=== PATIENT | male | born 1950 | race African-American/Black ===

== ENCOUNTER 2019-08-13 14:44 | Emergency (ER) | payer MEDICARE, SELFPAY ==
[2019-08-13] VITALS (11 sets, daily range): BP systolic 102–130; BP diastolic 76–90; PULSE 87–109; RESP 20–35; TEMP 36.8–38.6; O2SAT 89–100
--- NOTE | ~2019-08-13 | XR_ITS ---
XR chest 1V portable 08/13/2019 15:16 Indication: Hypoxia. Pneumonia. Procedure: AP portable chest Comparison: No prior studies for comparison. Findings: There is cardiomegaly. Extensive bilateral airspace disease. Possible small left effusion. No pneumothorax. No acute osseous abnormality. Impression: 1: Extensive bilateral airspace disease may represent edema or pneumonia. Reviewed, dictated and finalized at location A. Impression: 1: Extensive bilateral airspace disease may represent edema or pneumonia.
--- NOTE | ~2019-08-13 | CT_ITS ---
EXAMINATION: CTA chest PE abdomen pel DATE: 08/13/2019 16:30 INDICATION: Hypoxia TECHNIQUE: Computed tomography (CT) pulmonary angiogram of the chest was performed with 100 mL Omnipa que-350 intravenous contrast. Additional 3D reconstructions utilizing coronal maximum intensity proje ction (MIP) were performed. CT of the abdomen and pelvis was performed with intravenous contrast util izing the same contrast bolus following a short delay. Automated exposure control and iterative recon struction technique were employed. The dose-length product was 2412.94 mGy-cm. COMPARISON: None FINDINGS: Chest: Good contrast opacification of the pulmonary arteries. There is moderate streak artifact from dense c ontrast in the superior vena cava and right atrium as well as cardiac monitoring leads. Moderate scat tered respiratory motion artifact. Overall this decreases sensitivity and specificity in the segmenta l and subsegmental pulmonary arteries. There is decreased enhancement in the segmental and subsegment al pulmonary arteries of the posterior basilar segment of the right lower lobe suspicious for pulmona ry embolism. No other defects with significant suspicion for pulmonary embolism. Elevation of the rig ht hemidiaphragm. There are bilateral patchy groundglass opacities throughout both lungs with depende nt and lower lung predominance. Scattered bands of discoid atelectasis. Small bilateral pleural effus ions. Heart size is normal. No pericardial effusion. Incidentally noted left-sided upper partial anom alous pulmonary venous return which drains to the left brachiocephalic vein. Thoracic aorta is normal in caliber with no dissection. Bilateral hilar lymphadenopathy. There are prominent bronchial arteri es at the mediastinum and altaf. Small sliding-type hiatal hernia. Wall thickening in the distal esoph benji along with left few additional prominent paraesophageal lymph nodes in the inferior mediastinum. Abdomen/pelvis: Suggestion of subtle liver surface nodularity suspicious for cirrhosis. Gallbladder, spleen, pancreas , bilateral adrenal glands and right kidney are normal. Small region of cortical scarring at the lowe r pole of the left kidney. Bladder is normal. Prostatomegaly. Postoperative change of prior partial c olectomy with anastomotic suture line at the sigmoid colon. No abnormal bowel wall thickening or obst ruction. Fluid in the distal colon consistent with diarrhea. Normal appendix. No free intraperitoneal gas or fluid. No pathologically enlarged abdominal or pelvic lymphadenopathy. Mild fat-containing le ft inguinal hernia. Chronic mild L1 compression fracture. Moderate lumbar spondylosis. IMPRESSION: 1. Suggestion of a pulmonary arterial filling defect in the posterior basilar segment of the right lo wer lobe suspicious for pulmonary embolism. Sensitivity and specificity moderately limited by combina tion of motion artifact, streak artifact and good but suboptimal contrast opacification. 2. Patchy bilateral consolidation and groundglass opacities concerning for pneumonia. Differential in cludes pulmonary infarcts although airspace disease is more extensive than the single suspected pulmo nary embolism and several of the region of airspace disease have an atypical or central location. 3. Prominent bronchial arteries which can be seen with bronchiectasis, pulmonary hypertension, chroni c pulmonary embolism or following prior repair for congenital cardiac anomalies. 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 4. Small sliding-type hiatal hernia with wall thickening in the distal esophagus which could be relat ed to reflux. When clinically appropriate would consider follow-up endoscopy for further evaluation. 5. Mild bilateral hilar and paraesophageal lymphadenopathy which could be reactive or metas
--- NOTE | 2019-08-13 14:46 | ECG_ITS ---
Measurements Intervals [place] Rate: 99 P: 43 ME: 150 QRS: -23 QRSD: 88 T: 37 QT: 342 QTc: 439 Interpretive Statements SINUS RHYTHM POSSIBLE LEFT ATRIAL ENLARGEMENT RSR' IN V1 OR V2, CONSIDER RIGHT VENTRICULAR HYPERTROPHY OR RIGHT VCD POSSIBLE LEFT VENTRICULAR HYPERTROPHY BORDERLINE T WAVE ABNORMALITY- INFERIOR LEADS BASELINE ARTIFACT- II, III BORDERLINE ECG Electronically Signed On 08-13-2019 15:32:17 CDT by Winston Leonard D.O.
--- NOTE | 2019-08-13 15:14 | ED.SOB ---
HPI - SOB/Dyspnea General Chief Complaint: Shortness of Breath/Dyspnea Stated Complaint: SOB, Cough, Fever Time Seen by Provider: 08/13/19 14:54 History of Present Illness HPI Narrative: The patient presents from shelter for shortness of breath and cough. His roommate is currently patient here with coded. He has been coughing up phlegm that has no color. He arrived with a fever of 101.5. He does not complain of shortness of breath despite an elevated respiratory rate. He complains of epigastric abdominal pain. He speaks few words and usually just nods his head to answer. He did know the year. MD elicited complaint: shortness of breath and cough Onset (ago): unknown Context: recent illness Timing: progressively worsening Severity: moderate Known history of: other (Schizophrenia) Associated symptoms: fever, cough, sputum production and abdominal pain Related Data Home oxygen amount: none Home Medications Medication Instructions Recorded Confirmed acetaminophen [Tylenol] 650 mg PO QID PRN 08/13/19 acidophilus-pectin, citrus 1 cap PO BID 08/13/19 [Acidophilus Probiotic] divalproex 125 mg PO 08/13/19 gabapentin 100 mg PO BID 08/13/19 loperamide 2 mg PO 6XD PRN 08/13/19 lorazepam 0.5 mg PO BID PRN 08/13/19 multivitamin with minerals 1 tablet PO DAILY 08/13/19 08/13/19 polysaccharide iron complex 150 mg PO BID 08/13/19 [Poly-Iron] potassium chloride 20 meq PO 08/13/19 pseudoephedrine-guaifenesin tablet PO 08/13/19 [Mucinex D] quetiapine 50 mg PO BID 08/13/19 quetiapine 200 mg PO HS 08/13/19 thiamine HCl (vitamin B1) 100 mg PO DAILY 08/13/19 Allergies Allergy/AdvReac Type Severity Reaction Status Date / Time Penicillins Allergy Intermediate Dyspnea / Verified 08/13/19 15:32 SOB Review of Systems Review of Systems: All systems reviewed & are unremarkable except as noted in HPI and below Cardiovascular: Cardiovascular: Denies chest pain Respiratory: Respiratory: Reports cough and Reports dyspnea Gastrointestinal: Gastrointestinal: Reports abdominal pain, Denies nausea and Denies vomiting PMFSH Family History Family History (Updated 03/16/18 @ 16:39 by DOCTOR UNKNOWN) Mother Diabetes mellitus Family history of malignant neoplasm of breast in first degree relative Father Malignant neoplasm of prostate Social History Social History Smoking status: Former smoker Smoking end date: 05/02/86 Alcohol intake: never Exam Const: General: no acute distress and alert Nutritional Appearance: well nourished Orientation/consciousness: patient oriented x3 Limitations: behavioral limitations Other: He gives short answers one-word or nods his head and following directions he is slow to respond HENMT: Head: normal to inspection Eyes: Pupils: Equal, round and reactive pupils present EOM: EOMs intact bilaterally Chest: Chest palpation & inspection: normal inspection of the chest Resp: Effort & Inspection: normal respiratory effort, no retractions and no use of accessory muscles Auscultation: no rales and no wheezes Cardio: Rate: regular rate Rhythm: regular rhythm GI: GI Palp: Yes Soft to palpation, No Tenderness to palpation present (GI), No Guarding due to palpation present (GI), No Rigid due to palpation and No Palpable mass present Skin: General skin exam: normal color Rashes: no rashes Neuro: General: patient oriented x3 and no focal motor deficits Speech: Abnormal speech present Extrem: General: normal to inspection Psych: Attitude: cooperative Thought content: Yes other Course Consultations Consultation #1: The , [place], requests that we send him to [facility]. I offered to call, but expect that he will stay here, with all the COVID precautions. Date: 08/13/19 Time: 17:24 Date: 08/13/19 Time: 18:03 Consultation #3: Called [facility] for possible transfer. Tracy will call me back.Tracy is the access nurse Date: 08/13/19 Time: 19:43 Additional Consultati
[2019-08-13] MEDS: SODIUM CHLORIDE 0.9% IV 500 ML 999 ML IV CONT (15:33)
[2019-08-13 15:40] LABS: Basophils Percent Auto 0.4 % (0.2-1.2); Hemoglobin 14.3 g/dL (14.0-18.0); Immature Granulocyte Absolute 0.03 K/mm3 (0.00-0.031); Immature Granulocyte Percent A 0.6 % (0-0.5); Lymphocytes Absolute Auto 1.08 K/mm3 (0.9-3.2); Lymphocytes Percent Auto 19.9 % (18.3-44.2); Mean Corpuscular Hemoglobin 32.7 pg (26-34); Mean Corpuscular Volume 96.1 fl (80-100); Mean Platelet Volume 12.2 fl (7.4-10.4); Monocytes Absolute Auto 0.4 K/mm3 (0.1-0.6); Monocytes Percent Auto 7.5 % (2.6-8.5); Neutrophils Absolute Auto 3.9 K/mm3 (1.3-6.7); Neutrophils Percent Auto 71.6 % (45.5-73.1); Platelet Count Result 133 k/mm3 (150-375); Red Blood Count 4.37 M/mm3 (4.6-6.20); Red Cell Distribution Width 11.9 % (11.5-14.5); White Blood Count 5.4 K/mm3 (4.5-10.0)
[2019-08-13 15:55] LABS: Lactic Acid 1.6 mmol/L (0.7-2.1); Lipase 1425 U/L (23-300)
[2019-08-13 16:31] LABS: Estimated CRCL calculation 74 ml/min; Estimated Glomerular Filt Rate > 60
[2019-08-13] MEDS: HEPARIN SODIUM 5,000 UNITS/ML VIAL 7500 UNITS IV PUSH (18:09)
[2019-08-13] MEDS: HEPARIN SOD/D5W 100 UNITS/ML 25,000 UNITS/250 ML BAG 15 UNITS IV CONT (18:16)
[2019-08-13 18:53] LABS: Basophils Percent Auto 0.5 % (0.2-1.2); Hematocrit 41.9 % (42.0-52.0); Hemoglobin 14.1 g/dL (14.0-18.0); Immature Granulocyte Absolute 0.03 K/mm3 (0.00-0.031); Immature Granulocyte Percent A 0.5 % (0-0.5); Immature Platelet Fraction Pct 11.7 % (0.9-11.2); Lymphocytes Absolute Auto 1.51 K/mm3 (0.9-3.2); Lymphocytes Percent Auto 24.3 % (18.3-44.2); Mean Corpuscular HGB Conc 33.7 g/dl (32-36); Mean Corpuscular Hemoglobin 32.5 pg (26-34); Mean Corpuscular Volume 96.5 fl (80-100); Monocytes Absolute Auto 0.4 K/mm3 (0.1-0.6); Monocytes Percent Auto 6.6 % (2.6-8.5); Neutrophils Absolute Auto 4.2 K/mm3 (1.3-6.7); Neutrophils Percent Auto 68.1 % (45.5-73.1); Platelet Count Result 134 k/mm3 (150-375); Red Blood Count 4.34 M/mm3 (4.6-6.20); Red Cell Distribution Width 11.9 % (11.5-14.5); White Blood Count 6.2 K/mm3 (4.5-10.0)
[2019-08-13 19:00] LABS: INR 1.3; Prothrombin Time 15.8 Seconds (11.1-14.7)
[2019-08-13 19:14] LABS: Blood Urea Nitrogen 18 mg/dL (9-20); Carbon Dioxide 30 mmol/L (22-30); Chloride 96 mmol/L (98-107); Estimated CRCL calculation 74 ml/min; Estimated Glomerular Filt Rate > 60; Glucose 121 mg/dL (75-110); Potassium 3.7 mmol/L (3.4-5.0); Sodium 132 mmol/L (137-145)
[2019-08-13 19:19] LABS: Partial Thromboplastin Time > 200.0 SECONDS (22.3-36.8)
--- NOTE | 2019-08-13 21:42 | PC.NURSE ---
[facility]
--- NOTE | 2019-08-13 21:57 | PC.NURSE ---
ETA for [facility] ambulance said to be 45minutes.
[2019-08-14 13:45] LABS: SARS-CoV-2 RNA PCR Positive
--- NOTE | 2019-08-21 11:48 | PC.NURSE ---
Late Entry Pt was transferred to [facility] with heparin dripp infusing at current charted rate of 15mls an hour This note is being entered to document information to the patient's record. The following information was omitted on [08/13/2019], by [KL].
== END 2019-08-13 23:20 | disposition short-term general hospital (02) ==
PROVIDERS: Emergency Medicine; Emergency Provider Emergency Medicine; PCP Family Medicine
DX: U07.1 COVID-19 (principal); J12.89 Other viral pneumonia; K85.90 Acute pancreatitis without necrosis or infection, unspecified; I26.99 Other pulmonary embolism without acute cor pulmonale; R50.9 Fever, unspecified; F20.9 Schizophrenia, unspecified; R09.02 Hypoxemia; R10.13 Epigastric pain; D69.6 Thrombocytopenia, unspecified; Z87.891 Personal history of nicotine dependence; R94.31 Abnormal electrocardiogram [ECG] [EKG]
CPT/HCPCS: 36415; 71045; 71275; 74177; 80048; 83605; 83690; 85025; 85055; 85610; 85730; 87040; 87635; 87804; 93005; 96361; 96365; 96366; 96367; 96368; 99285; C9803; J0456; J0696; J1644; J7040; Q9967; U0002

== ENCOUNTER 2020-07-11 19:09 | Emergency (ER) | payer MEDICARE, SELFPAY ==
[2020-07-11] VITALS (25 sets, daily range): BP systolic 105–129; BP diastolic 67–90; PULSE 72–89; RESP 13–24; O2SAT 93–100
--- NOTE | ~2020-07-11 | XR_ITS ---
XR chest 2V 07/11/2020 19:43 Indication: Weakness. Dyspnea. Procedure: AP and lateral views of the chest Comparison: 08/13/2019 Findings: There is patchy bilateral airspace disease predominantly of the mid and lower lungs, consis tent with pneumonia. Elevated right diaphragm. Heart size normal. No pneumothorax. No significant eff usion. Impression: 1: Patchy bilateral airspace disease, compatible with pneumonia. Reviewed, dictated and finalized at location A. ON P[place]CH[place] Impression: 1: Patchy bilateral airspace disease, compatible with pneumonia.
--- NOTE | 2020-07-11 19:19 | ECG_ITS ---
Measurements Intervals [place] Rate: 86 P: 42 [place]: 174 QRS: -27 QRSD: 100 T: 18 QT: 372 QTc: 447 Interpretive Statements SINUS RHYTHM VOLTAGE CRITERIA FOR LVH BASELINE ARTIFACT- V2 BORDERLINE ECG Electronically Signed On 07-11-2020 20:54:06 REMOTELY PILOTED [employer]HICLE [employer]OLLER by Winston Leonard D.O.
--- NOTE | 2020-07-11 19:35 | PC.NURSE ---
Patient to radiology
[2020-07-11 20:07] LABS: Basophils Percent Auto 0.9 % (0.2-1.2); Eosinophils Absolute Auto 0.3 K/mm3 (0-0.3); Eosinophils Percent Auto 7.7 % (0-4.4); Hemoglobin 14.3 g/dL (14.0-18.0); Immature Granulocyte Absolute 0.01 K/mm3 (0.00-0.031); Immature Granulocyte Percent A 0.2 % (0-0.5); Lymphocytes Absolute Auto 1.65 K/mm3 (0.9-3.2); Lymphocytes Percent Auto 37.3 % (18.3-44.2); Mean Corpuscular HGB Conc 33.3 g/dl (32-36); Mean Corpuscular Hemoglobin 35.7 pg (26-34); Mean Corpuscular Volume 107.2 fl (80-100); Mean Platelet Volume 10.1 fl (7.4-10.4); Monocytes Absolute Auto 0.7 K/mm3 (0.1-0.6); Monocytes Percent Auto 15.6 % (2.6-8.5); Neutrophils Absolute Auto 1.7 K/mm3 (1.3-6.7); Neutrophils Percent Auto 38.3 % (45.5-73.1); Platelet Count Result 137 k/mm3 (150-375); Red Blood Count 4.01 M/mm3 (4.6-6.20); Red Cell Distribution Width 15.5 % (11.5-14.5); White Blood Count 4.4 K/mm3 (4.5-10.0)
[2020-07-11] MEDS: LACTATED RINGERS 1,000 ML 999 ML IV CONT (20:13)
[2020-07-11 20:18] LABS: Ammonia < 9 umol/L (9-30)
[2020-07-11 20:20] LABS: Alanine Aminotransferase 15 U/L (4-50); Albumin Level 3.6 g/dL (3.5-5.1); Alkaline Phosphatase 100 U/L (38-126); Anion Gap 2 mmol/L (8-16); Aspartate Amino Transferase 31 U/L (17-59); Bilirubin,Total 1.6 mg/dL (0.2-1.3); Blood Urea Nitrogen 9 mg/dL (9-20); Calcium 8.9 mg/dL (8.4-10.2); Carbon Dioxide 34 mmol/L (22-30); Chloride 105 mmol/L (98-107); Estimated Glomerular Filt Rate > 60; Glucose 152 mg/dL (75-110); Potassium 3.6 mmol/L (3.4-5.0); Sodium 141 mmol/L (137-145)
[2020-07-11 20:50] LABS: Cortisol Random 2.24 ug/dL
--- NOTE | 2020-07-11 20:58 | ED.WEAKNESS ---
HPI - Weakness General Chief complaint: Weakness Stated complaint: weakness/altered mental status Time Seen by Provider: 07/11/20 19:25 Source: patient, EMS and other ([facility] records) Mode of arrival: EMS Limitations: dementia History of Present Illness HPI Narrative: 70-year-old male He is currently being treated at [place] for colon cancer, and his next primary is due in a couple of weeks He additionally has a history of dementia and schizophrenia According to the assisted paperwork he was sent to be evaluated for seems different than usual, talks and communicates less, tired, weak, confused or drowsy, falls, urinary incontinence new or worsening Patient himself is oriented x1-2, knows he is in a hospital He has no particular physical complaints Denies chest pain or trouble breathing vomiting or trouble with his bowels urinary trouble, pains anywhere bothering him, and his appetite is good if he can get food that he likes He mentions that he particularly likes meat loaf with mashed potatoes or barbecue He also would like to be able to work and make some money Related Data Home Medications Medication Instructions Recorded Confirmed acetaminophen [Tylenol] 650 mg PO QID PRN 08/13/19 acidophilus-pectin, citrus 1 cap PO BID 08/13/19 [Acidophilus Probiotic] divalproex 125 mg PO 08/13/19 gabapentin 100 mg PO BID 08/13/19 loperamide 2 mg PO 6XD PRN 08/13/19 lorazepam 0.5 mg PO BID PRN 08/13/19 multivitamin with minerals 1 tablet PO DAILY 08/13/19 08/13/19 polysaccharide iron complex 150 mg PO BID 08/13/19 [Poly-Iron] potassium chloride 20 meq PO 08/13/19 pseudoephedrine-guaifenesin tablet PO 08/13/19 [Mucinex D] quetiapine 50 mg PO BID 08/13/19 quetiapine 200 mg PO HS 08/13/19 thiamine HCl (vitamin B1) 100 mg PO DAILY 08/13/19 Allergies Allergy/AdvReac Type Severity Reaction Status Date / Time Penicillins Allergy Intermediate Dyspnea / Verified 08/13/19 15:32 SOB PMFSH Family History Family History (Updated 03/16/18 @ 16:39 by DOCTOR UNKNOWN) Mother Diabetes mellitus Family history of malignant neoplasm of breast in first degree relative Father Malignant neoplasm of prostate Social History Social History Smoking status: Former smoker Smoking end date: 05/02/86 Alcohol intake: never Course Course Emergency Course: He really looks pretty good and has minimal complaints There is a questionable infiltrate on his chest x-ray however his chest x-ray looks 100 times better than his prior chest x-ray here and that may in fact just be old scarring from the severe pneumonia that he had previously He does not have a fever he does not have a cough he does not have shortness of breath his sats are ~95% and his white count is unchanged from his baseline from [place] 2 weeks ago But out of abundance of caution we will treated with a brief course of Levaquin Vital Signs Vital signs: Vital Signs Pulse Rate 85 07/11/20 19:14 Respiratory Rate 14 07/11/20 19:14 Blood Pressure 129/81 07/11/20 19:14 Pulse Oximetry 95 07/11/20 19:14 Pulse Rate 89 07/11/20 20:32 Respiratory Rate 17 07/11/20 20:32 Blood Pressure 112/76 07/11/20 20:32 Pulse Oximetry 95 07/11/20 20:32 MDM - Weakness Lab Data Result diagrams: 07/11/20 20:01 07/11/20 20:01 Labs: Lab Results 07/11/20 07/11/20 07/11/20 Range/Units 20:01 20:01 20:01 WBC 4.4 L (4.5-10.0) K/mm3 RBC 4.01 L (4.6-6.20) M/mm3 Hgb 14.3 (14.0-18.0) g/dL Hct 43.0 (42.0-52.0) % MCV 107.2 H (80-100) fl MCH 35.7 H (26-34) pg MCHC 33.3 (32-36) g/dl RDW 15.5 H (11.5-14.5) % Plt Count 137 L (150-375) k/mm3 MPV 10.1 (7.4-10.4) fl Immature Gran % (Auto) 0.2 (0-0.5) % Neut % (Auto) 38.3 L (45.5-73.1) % Lymph % (Auto) 37.3 (18.3-44.2) % [place] % (Auto) 15.6 H (2.6-8.5) % Eos % (Auto) 7.7 H (0-4.4) % B
[2020-07-11 21:08] LABS: Add Urine Microscopic? YES; Appearance Urine Cloudy (Clear); Bilirubin Urine 1+ (Negative); Blood Urine Negative (Negative); Color Urine Amber (Yellow); Glucose Urine UA Negative (Negative); Ketones Urine Negative (Negative); Leukocyte Esterase Ur Negative LEU/UL (Negative); Mucus Urine Moderate /lpf; Nitrate Urine Negative (Negative); Protein Urine 1+ mg/dL (Negative); RBC Urine 0-2 /hpf (0-2); Specific Grav Ur 1.029 (1.001-1.035); WBC Urine 0-3 /hpf
--- NOTE | 2020-07-11 23:21 | PC.NURSE ---
called [facility] to arrange transport back to [facility] at 0045. ETA first available is 0300.
[2020-07-12 00:05] VITALS: PULSE 79; RESP 13
[2020-07-12 00:15] VITALS: PULSE 79; RESP 13
[2020-07-12 00:34] VITALS: PULSE 88; RESP 17
[2020-07-12 00:56] VITALS: PULSE 95; RESP 15
[2020-07-12 01:00] VITALS: PULSE 96; RESP 17
--- NOTE | 2020-07-12 01:12 | PC.NURSE ---
0036 called [facility] to request transport. [facility] here. Cancelled [facility].
== END 2020-07-12 01:13 ==
PROVIDERS: Emergency Provider Emergency Medicine; PCP Family Medicine
DX: J18.9 Pneumonia, unspecified organism (principal); F03.90 Unspecified dementia, unspecified severity, without behavioral disturbance, psychotic disturbance, mood disturbance, and anxiety; F20.9 Schizophrenia, unspecified; C18.9 Malignant neoplasm of colon, unspecified; Z87.891 Personal history of nicotine dependence; R94.31 Abnormal electrocardiogram [ECG] [EKG]
CPT/HCPCS: 36415; 51701; 71046; 80053; 81001; 82140; 82533; 83735; 84443; 85025; 87040; 87147; 87186; 93005; 96361; 96365; 99284; J1956; J7120

== ENCOUNTER 2020-08-22 09:00 | Outpatient (CLI) | payer MEDICARE, SELFPAY ==
--- NOTE | ~2020-08-22 | MR_ITS ---
EXAMINATION: MR brain/brain stem wo con DATE: 08/22/2020 10:16 INDICATION: Speech deficit. Cognitive issues. Frequent falls. TECHNIQUE: Magnetic resonance imaging (MRI) of the brain and brainstem was performed without intraven ous contrast. Sequences included sagittal and axial T1-weighted FSE, axial diffusion-weighted FS EPI, axial T2*-weighted GRE, axial T2-weighted FLAIR Propeller, and axial T2-weighted Propeller. Apparent diffusion coefficient (ADC) maps were created. COMPARISON: None. FINDINGS: There are scattered areas of nonspecific increased T2-weighted signal intensity in the cere bral white matter, which is within normal limits for the patient's age. There is no intracranial hemo rrhage, acute infarction, or abnormal intracranial mass lesion. The ventricles are normal in size. Th ere is mild mucosal thickening in the paranasal sinuses. The orbits are normal. The mastoid air cells are normal. IMPRESSION: 1. Normal aging brain. Reviewed, dictated and finalized at location B. IMPRESSION: 1. Normal aging brain.
== END 2020-08-22 09:01 ==
DX: R29.6 Repeated falls (principal)
CPT/HCPCS: 70551

== ENCOUNTER 2020-09-15 12:27 | Emergency (ER) | payer MEDICARE, SELFPAY ==
[2020-09-15] VITALS (15 sets, daily range): BP systolic 111–168; BP diastolic 77–109; PULSE 54–85; RESP 14–29; TEMP 36.6; O2SAT 94–99
--- NOTE | ~2020-09-15 | CT_ITS ---
EXAMINATION: CT brain wo con EXAM DATE: 09/15/2020 15:32 INDICATION: Transient change in awareness. Colon cancer. TECHNIQUE: Spiral CT of the head was performed without contrast. Axial, coronal and sagittal images were reviewed. The dose-length product (DLP) for this examination was 605.33 mGy-cm. The exposure w as tailored according to patient size, and iterative reconstruction (ASIR) was used as additional dos e reduction technique. There is no prior study for comparison. FINDINGS: There is no acute intraparenchymal hemorrhage. No evidence of intraparenchymal brain mass lesion. No evidence of acute infarction. Please note that initial head CT has limited sensitivity f or small or acute infarctions. There is mild periventricular and subcortical hypodensity, nonspecific but probably related to small vessel ischemic disease. There is moderate prominence of the sulci a nd ventricles related to cerebral atrophy. There is intracranial carotid arteriosclerosis. There a re no extra-axial collections. There is no mass effect or midline shift. The orbits are unremarkabl e. Soft tissue is unremarkable. The visualized sinuses and mastoid air cells are well aerated. IMPRESSION: 1. No acute intracranial findings. 2. Chronic age related findings. Reviewed, dictated and finalized at location A.
--- NOTE | 2020-09-15 12:56 | ECG_ITS ---
Measurements Intervals [place] Rate: 84 P: 34 ME: 170 QRS: -23 QRSD: 89 T: 26 QT: 381 QTc: 453 Interpretive Statements SINUS RHYTHM INCOMPLETE RIGHT BUNDLE BRANCH BLOCK VOLTAGE CRITERIA FOR LVH BORDERLINE T WAVE ABNORMALITY- INFERIOR LEADS BORDERLINE ECG Electronically Signed On 09-15-2020 13:18:47 CDT by Winston Leonard D.O.
[2020-09-15 13:17] LABS: Basophils Absolute Auto 0.1 K/mm3 (0.0-0.1); Basophils Percent Auto 0.8 % (0.2-1.2); Eosinophils Absolute Auto 0.2 K/mm3 (0-0.3); Eosinophils Percent Auto 3.7 % (0-4.4); Hematocrit 38.3 % (42.0-52.0); Hemoglobin 12.7 g/dL (14.0-18.0); Immature Granulocyte Absolute 0.01 K/mm3 (0.00-0.031); Immature Granulocyte Percent A 0.2 % (0-0.5); Lymphocytes Absolute Auto 1.54 K/mm3 (0.9-3.2); Lymphocytes Percent Auto 23.7 % (18.3-44.2); Mean Corpuscular HGB Conc 33.2 g/dl (32-36); Mean Corpuscular Hemoglobin 33.8 pg (26-34); Mean Corpuscular Volume 101.9 fl (80-100); Mean Platelet Volume 10.7 fl (7.4-10.4); Monocytes Absolute Auto 0.8 K/mm3 (0.1-0.6); Monocytes Percent Auto 12.8 % (2.6-8.5); Neutrophils Absolute Auto 3.8 K/mm3 (1.3-6.7); Neutrophils Percent Auto 58.8 % (45.5-73.1); Platelet Count Result 192 k/mm3 (150-375); Red Blood Count 3.76 M/mm3 (4.6-6.20); Red Cell Distribution Width 12.9 % (11.5-14.5); White Blood Count 6.5 K/mm3 (4.5-10.0)
--- NOTE | 2020-09-15 13:19 | ED.GENADULT ---
HPI - General Adult General Chief complaint: Unspecified Stated complaint: ?CHEMO OD Time Seen by Provider: 09/15/20 12:34 Source: RN notes reviewed History of Present Illness HPI narrative: Patient presents to emergency department from [facility] for medication administration error. The patient is currently on Stivarga for colon cancer and is followed by Dr. Kmi per the F the patient supposed be receiving 80 mg daily but for the past 3 days has been given 160 mg daily. On the area was noted today the patient was sent for further evaluation. Patient with history of dementia and is a poor historian denies any complaints at this time. Per the staff the patient has not developed some erythema over his left forehead and left side of his face patient states this area does not hurt no noted fevers or chills Related Data Home Medications Medication Instructions Recorded Confirmed acetaminophen [Tylenol] 650 mg PO QID PRN 08/13/19 acidophilus-pectin, citrus 1 cap PO BID 08/13/19 [Acidophilus Probiotic] divalproex 125 mg PO 08/13/19 gabapentin 100 mg PO BID 08/13/19 loperamide 2 mg PO 6XD PRN 08/13/19 lorazepam 0.5 mg PO BID PRN 08/13/19 multivitamin with minerals 1 tablet PO DAILY 08/13/19 08/13/19 polysaccharide iron complex 150 mg PO BID 08/13/19 [Poly-Iron] potassium chloride 20 meq PO 08/13/19 pseudoephedrine-guaifenesin tablet PO 08/13/19 [Mucinex D] quetiapine 50 mg PO BID 08/13/19 quetiapine 200 mg PO HS 08/13/19 thiamine HCl (vitamin B1) 100 mg PO DAILY 08/13/19 Allergies Allergy/AdvReac Type Severity Reaction Status Date / Time Penicillins Allergy Intermediate Dyspnea / Verified 08/13/19 15:32 SOB Review of Systems Review of Systems: Narrative: Gen.: Denies fevers or chills Eyes: Denies eye pain or visual change ENT: Denies congestion Respiratory: Denies shortness of breath or cough CV: Denies chest pain GI: Denies abdominal pain nausea, emesis or diarrhea Musculoskeletal: Denies back pain or muscle pain Neuro: Denies numbness, tingling, weakness or focal weakness Skin: See HPI Except as documented, all other systems reviewed and negative [facility] Past Medical History Medical History (Updated 09/15/20 @ 16:10 by Jose Ramires DO) Colon cancer Family History Family History (Updated 03/16/18 @ 16:39 by DOCTOR UNKNOWN) Mother Diabetes mellitus Family history of malignant neoplasm of breast in first degree relative Father Malignant neoplasm of prostate Social History Social History Smoking status: Former smoker Smoking end date: 05/02/86 Alcohol intake: never Exam Narrative: Exam Narrative: APPEARANCE: No acute distress, nontoxic, resting in bed EYES: EOMI, PERRL, no conjunctival erythema HEENT: Normocephalic, atraumatic, OMM TMs clear bilaterally nares patent oral mucosa moist Neck: Supple no midline tenderness palpation RESPIRATORY: No respiratory distress Clear to auscultation bilaterally with no rhonchi wheezing or rales. CARDIOVASCULAR: Regular rate and rhythm without murmurs rubs or gallops. ABDOMINAL: Soft, nontender, nondistende NEURO: Awake and alert x 2. Following commands, speech normal, no focal deficits SKIN:: Warm, dry. Erythematous rash over the left forehead to the left cheek and extends into the left superior eyelid with some mild yellow crusting no vesicles seen and it does seem to cross dermatomal lines no erythema of the neck seen does not extend into the ear and the external ear canal is normal PSYCHIATRIC: Normal affect/mood, Course Course Emergency Course: Poison control was contacted states that if liver enzymes normal patient may discharge to follow-up as an outpatient : Discussed with Dr. Kim presentation work-up agrees with plan for discharge will follow as an outpatient Discussed with patient results of workup and diagnosis. Discussed need for follow-up with primary care, p
[2020-09-15 13:27] LABS: Alanine Aminotransferase 10 U/L (4-50); Albumin Level 3.6 g/dL (3.5-5.1); Alkaline Phosphatase 162 U/L (38-126); Anion Gap 5 mmol/L (8-16); Aspartate Amino Transferase 28 U/L (17-59); Bilirubin,Total 0.9 mg/dL (0.2-1.3); Blood Urea Nitrogen 7 mg/dL (9-20); Calcium 8.8 mg/dL (8.4-10.2); Carbon Dioxide 27 mmol/L (22-30); Chloride 109 mmol/L (98-107); Estimated Glomerular Filt Rate > 60; Glucose 117 mg/dL (75-110); INR 1.4; Prothrombin Time 17.3 Seconds (11.1-14.7); Sodium 141 mmol/L (137-145)
[2020-09-15 13:28] LABS: Partial Thromboplastin Time 41.9 SECONDS (22.3-36.8)
--- NOTE | 2020-09-15 14:04 | PC.NURSE ---
[id number] SPOKE WITH [facility] @[facility]. STATES SUPPORTIVE CARE,MONITOR AST,ALT IF PT BEGINS HAVING NAUSEA,VOMITING . WILL FAX INFO.
--- NOTE | 2020-09-15 14:09 | PC.NURSE ---
~1330 SPOKE WITH [facility] PT WAS GIVEN REGORAFENIB (STIVARGA) 80 MG PO TWICE A DAY X 3 DAYS INSTEAD OF 80 MG PO DAILY FOR THE 3 DAYS. PT WAS JUST STARTED ON THIS MEDICATION ON TUESDAY.
[2020-09-15] MEDS: CLINDAMYCIN HCL 150 MG CAP 300 MG PO (16:37)
--- NOTE | 2020-09-15 16:47 | PC.NURSE ---
made contact with [facility] to transfer pt back to [facility] eta [phone]
--- NOTE | 2020-09-15 18:55 | PC.NURSE ---
made contact with [facility]. new eta [phone]
--- NOTE | 2020-09-15 19:45 | PC.NURSE ---
called [facility] for ETA update. ETA [phone]
== END 2020-09-15 20:35 ==
PROVIDERS: Emergency Provider Emergency Medicine
DX: L01.00 Impetigo, unspecified (principal); T45.1X1D Poisoning by antineoplastic and immunosuppressive drugs, accidental (unintentional), subsequent encounter; C22.9 Malignant neoplasm of liver, not specified as primary or secondary; Z87.891 Personal history of nicotine dependence; F03.90 Unspecified dementia, unspecified severity, without behavioral disturbance, psychotic disturbance, mood disturbance, and anxiety
CPT/HCPCS: 36415; 70450; 80053; 85025; 85610; 85730; 93005; 99284; A9270

== ENCOUNTER 2020-11-25 04:02 | Emergency (ER) | payer MEDICARE, MEDICAID, SELFPAY ==
--- NOTE | ~2020-11-25 | CT_ITS ---
EXAMINATION: CT brain wo con DATE: 11/25/2020 04:44 INDICATION: A status post fall. Patient on blood thinners. TECHNIQUE: Computed tomography (CT) of the head was performed without intravenous contrast. The dose- length product was 681.00 mGy-cm. Automated exposure control and iterative reconstruction technique w ere employed. COMPARISON: CT dated 09/15/2020 FINDINGS: No acute intracranial hemorrhage, infarction, mass or mass effect. Mild generalized atrophy . There are scattered mild periventricular and subcortical white matter changes, most likely related to small vessel ischemic disease (microangiopathy). No ventriculomegaly or midline shift. Paranasal s inuses and mastoids are pneumatized. No depressed skull fractures. IMPRESSION: 1. No acute intracranial abnormality. Reviewed, dictated and finalized at location A.
[2020-11-25 04:03] VITALS: BP 112/81; PULSE 92; RESP 14; TEMP 36.7; O2SAT 96
--- NOTE | 2020-11-25 04:13 | ED.FALL ---
HPI - Fall General Chief Complaint: Fall Stated Complaint: FALL Time Seen by Provider: 11/25/20 04:13 Source: patient and EMS Mode of arrival: EMS Limitations: no limitations History of Present Illness HPI Narrative: Patient is a 70-year-old male with history of colon cancer who presents from outside [place] for evaluation of fall out of bed. Patient reportedly fell out of bed altering in his sleep. Patient states it is a small bed, causing him to fall to the ground. He denies head trauma or loss of consciousness. He did not hit his head on the ground. Patient denies any neck pain or shoulder pain. No hip pain or pelvic pain. Patient denies any symptoms of any sort. Per policy at the halfway, anyone who is anticoagulated and has a fall must be evaluated for an intracranial bleed. Patient denies any vision changes, nausea or vomiting. He has been compliant with his medications. Related Data Home Medications Medication Instructions Recorded Confirmed acetaminophen [Tylenol] 650 mg PO QID PRN 08/13/19 acidophilus-pectin, citrus 1 cap PO BID 08/13/19 [Acidophilus Probiotic] divalproex 125 mg PO 08/13/19 gabapentin 100 mg PO BID 08/13/19 loperamide 2 mg PO 6XD PRN 08/13/19 lorazepam 0.5 mg PO BID PRN 08/13/19 multivitamin with minerals 1 tablet PO DAILY 08/13/19 08/13/19 polysaccharide iron complex 150 mg PO BID 08/13/19 [Poly-Iron] potassium chloride 20 meq PO 08/13/19 pseudoephedrine-guaifenesin tablet PO 08/13/19 [Mucinex D] quetiapine 50 mg PO BID 08/13/19 quetiapine 200 mg PO HS 08/13/19 thiamine HCl (vitamin B1) 100 mg PO DAILY 08/13/19 Allergies Allergy/AdvReac Type Severity Reaction Status Date / Time Penicillins Allergy Intermediate Dyspnea / Verified 11/25/20 04:47 SOB Review of Systems Review of Systems: Narrative: CONSTITUTIONAL: Denies fever CARDIOVASCULAR: Denies chest pain RESPIRATORY: Denies cough or dyspnea. GASTROINTESTINAL: Denies abdominal pain SKIN: Denies rash MUSCULOSKELETAL: Denies back pain NEUROLOGIC: Denies headache, denies numbness or weakness PMF Past Medical History Medical History Colon cancer Family History Family History Mother Diabetes mellitus Family history of malignant neoplasm of breast in first degree relative Father Malignant neoplasm of prostate Social History Social History Smoking status: Former smoker Smoking end date: 05/02/86 Alcohol intake: never Gender identity (if verbalized by the patient): Male Exam Narrative: Exam Narrative: GENERAL: Awake, alert, conversant HEAD: Normocephalic, atraumatic. EYES: PERRLA and EOMI. ENT: Nares clear, no rhinorrhea or epistaxis. Mucous membranes moist. NECK: Supple. CHEST: No respiratory distress, breathing even and non labored HEART: Regular rate, sinus rhythm ABDOMEN:Non distended, non tender EXTREMITIES: Normal range of motion. No edema. SKIN: Warm, dry, no rash. NEURO:No focal deficits. Alert and oriented x3 Course Vital Signs Vital signs: Vital Signs Temperature 36.7 C 11/25/20 04:03 Pulse Rate 92 11/25/20 04:03 Respiratory Rate 14 11/25/20 04:03 Blood Pressure 112/81 11/25/20 04:03 Pulse Oximetry 96 11/25/20 04:03 Temperature 36.7 C 11/25/20 04:03 Pulse Rate 87 11/25/20 05:20 Respiratory Rate 14 11/25/20 05:20 Blood Pressure 110/92 H 11/25/20 05:20 Pulse Oximetry 96 11/25/20 05:20 MDM - Fall MDM Narrative Medical decision making narrative: Patient presented after a fall out of bed. At the time of assessment, patient is alert and oriented to person, place and to time. No headache, vision changes or any neurological deficits. Based on halfway policy, patient is to have a CT scan of their head and to be evaluated for possible intracranial bleed given he is on a
[2020-11-25 05:20] VITALS: BP 110/92; PULSE 87; RESP 14; O2SAT 96
--- NOTE | 2020-11-25 06:12 | PC.NURSE ---
[facility] here.
== END 2020-11-25 06:16 ==
PROVIDERS: Emergency Provider Emergency Medicine
DX: Z04.3 Encounter for examination and observation following other accident (principal); Z85.038 Personal history of other malignant neoplasm of large intestine; Z87.891 Personal history of nicotine dependence; W06.XXXA Fall from bed, initial encounter; Z79.01 Long term (current) use of anticoagulants
CPT/HCPCS: 70450; 99284

== ENCOUNTER 2020-12-10 23:21 | Observation (INO) | payer MEDICARE, MEDICAID, SELFPAY ==
--- NOTE | ~2020-12-10 | CT_ITS ---
EXAMINATION: CT cervical spine wo con DATE: 12/11/2020 01:32 INDICATION: Fall. Dementia. TECHNIQUE: Computed tomography (CT) of the cervical spine was performed without intravenous contrast. Automated exposure control and iterative reconstruction technique were employed. Exam dose: 483.41 mGy-cm total exam DLP. COMPARISON: None FINDINGS: There is straightening of cervical spine which may be due to muscle spasm or positioning. C1 and C2 are normally aligned and the odontoid process is intact. No fracture or dislocation or lock ed facet or prevertebral soft tissue swelling. There is moderately severe degenerative disc disease at C3-4 and C4-5. Degenerative disc disease at C 5-6 and C6-7. Mild degenerative disc disease at C5-6. Emphysematous changes and scarring are suggested in the upper lung zones. IMPRESSION: Straightening of cervical spine, possibly due to muscle spasm Cervical spondylosis No cervical spine fracture or dislocation Reviewed, dictated and finalized at Location [facility]. Reviewed, dictated and finalized at location A.
--- NOTE | ~2020-12-10 | CT_ITS ---
EXAMINATION: CT brain wo con DATE: 12/11/2020 01:32 INDICATION: Fall. Patient on blood thinners. TECHNIQUE: Computed tomography (CT) of the head was performed without intravenous contrast. The mA wa s adjusted according to patient size. Iterative reconstruction technique was employed. Exam dose: 60 5.33 mGy-cm total exam DLP. COMPARISON: 11/25/2020 CT brain FINDINGS: Minimal bilateral basal ganglia calcification. Bilateral carotid siphon internal carotid artery calcifications. Nonspecific diminished attenuation c erebral white matter, likely due to chronic small vessel ischemic changes. No intracranial mass lesion or hemorrhage or cerebrovascular accident. No subdural or epidural hematoma. There is mild to moderate cerebral volume loss, most prominent in the frontal regions. Osteoma in the right frontoethmoid area. The paranasal sinuses and mastoid air cells appear normally developed and aerated. No fracture or bone destruction of the cranial vault. IMPRESSION: No skull fracture or acute intracranial finding Reviewed, dictated and finalized at [facility]. Reviewed, dictated and finalized at location A.
--- NOTE | ~2020-12-10 | XR_ITS ---
XR chest 1V portable DATE: 12/11/2020 00:46 INDICATION: Fever TECHNIQUE: Portable AP chest on 12/11/2020 at 0041 hours COMPARISON: 07/11/2020 AP and lateral chest FINDINGS: Heart size appears within normal range. There is moderate elevation of the right leaf of th e diaphragm, stable since 07/11/2020. There are extensive patchy bilateral pulmonary infiltrates consistent with multifocal pneumonia. No pleural effusion is evident. The radiographic appearance suggests Covid pneumonia. No pneumothorax. Diffuse osteopenia. Dextroscoliosis of the thoracolumbar spine. IMPRESSION: Patchy multifocal bilateral pneumonia without pleural effusions, suggestive of Covid pneu monia Reviewed, dictated and finalized at location A. IMPRESSION: Patchy multifocal bilateral pneumonia without pleural effusions, wilkerson ggestive of Covid pneumonia
[2020-12-10 23:21] VITALS: BP 117/85; PULSE 115; RESP 16; TEMP 37.3; O2SAT 95
[2020-12-11] VITALS (16 sets, daily range): BP systolic 91–124; BP diastolic 69–86; PULSE 79–111; RESP 16–27; TEMP 36.2–36.8; O2SAT 94–100; BMI 28.3
--- NOTE | 2020-12-11 00:32 | ED.GENADULT ---
HPI - General Adult General Chief complaint: Fall Stated complaint: fall Time Seen by Provider: 12/11/20 00:10 Source: patient, EMS and RN notes reviewed Mode of arrival: EMS Limitations: dementia History of Present Illness HPI narrative: This is 70 year old male with history of schizophrenia, DM who presents from [facility] for evaluation of fever and a fall. Nursing staff reports patient fell earlier in the day. It is unclear if he hit his head but he does take eliquis. Patient told nursing staff that he fell trying to get out of his wheelchair but he denies hitting his head. He has no complaints. Nursing staff also reports patient was found to have fever 101.1 F today and he was sent out due to declining vital signs. Related Data Home Medications Medication Instructions Recorded Confirmed gabapentin 100 mg PO BID 08/13/19 loperamide 2 mg PO 6XD PRN 08/13/19 multivitamin with minerals 1 tablet PO DAILY 08/13/19 08/13/19 polysaccharide iron complex 150 mg PO BID 08/13/19 [Poly-Iron] potassium chloride 20 meq PO 08/13/19 pseudoephedrine-guaifenesin tablet PO 08/13/19 [Mucinex D] quetiapine 50 mg PO BID 08/13/19 quetiapine 200 mg PO HS 08/13/19 thiamine HCl (vitamin B1) 100 mg PO DAILY 08/13/19 apixaban [Eliquis] mg 12/11/20 divalproex PO 12/11/20 lorazepam 12/11/20 mirtazapine mg 12/11/20 Allergies Allergy/AdvReac Type Severity Reaction Status Date / Time Penicillins Allergy Intermediate Dyspnea / Verified 12/10/20 23:32 SOB Review of Systems Review of Systems: All systems reviewed & are unremarkable except as noted in HPI and below PMFSH Past Medical History Medical History (Updated 12/11/20 @ 08:03 by Lulú Arias MD) Colon cancer Schizophrenia Family History Family History Mother Diabetes mellitus Family history of malignant neoplasm of breast in first degree relative Father Malignant neoplasm of prostate Social History Social History Smoking status: Former smoker Smoking end date: 01/01/87 Alcohol intake: never Gender identity (if verbalized by the patient): Male Exam Const: General: no acute distress and alert Orientation/consciousness: patient oriented x3 HENMT: Ears: TM's normal bilaterally Face and sinus: face symmetric and dry mucous membranes Mouth: Yes other (dried blood on lips, small scab on tip of tongue) Teeth and gingiva: poor dentition Throat: uvula midline Eyes: EOM: EOMs intact bilaterally Resp: Effort & Inspection: normal respiratory effort and no retractions Auscultation: clear to auscultation bilaterally Cardio: Rate: tachycardic Rhythm: regular rhythm Heart sounds: no murmurs GI: GI Palp: Yes Soft to palpation, No Tenderness to palpation present (GI) and No Guarding due to palpation present (GI) Auscultation: normal bowel sounds Skin: General skin exam: normal color Rashes: no rashes Neuro: General: patient oriented x3, moves all extremities and CN's II-XI intact bilaterally Extrem: General: normal to inspection Psych: Mental Status: mental status grossly normal Affect: normal affect Course Reevaluation(s) Reevaluation #1: Patient presents with fall and fever. He has no complaints. He appears extremely dehydrated. BP has been soft likely due to dehydration. I am concerned patient has pneumonia and possible covid. He has been started on antibiotics. I spoke with Dr. Thomas that patient needs admission due to BP running in low 90s. It is improving now after almost 3 L fluid. Date: 12/11/20 Time: 05:35 Vital Signs Vital signs: Vital Signs Temperature 99.1 F 12/10/20 23:21 Pulse Rate 115 H 12/10/20 23:21 Respiratory Rate 16 12/10/20 23:21 Blood Pressure 117/85 12/10/20 23:21 Pulse Oximetry 95 12/10/20 23:21 Temperature 99.1 F 12/10/20 23:21 Pulse Rate 82
[2020-12-11 01:23] LABS: Basophils Absolute Auto 0.1 K/mm3 (0.0-0.1); Hematocrit 42.1 % (42.0-52.0); Hemoglobin 13.2 g/dL (14.0-18.0); Immature Granulocyte Absolute 0.02 K/mm3 (0.00-0.031); Immature Granulocyte Percent A 0.4 % (0-0.5); Lymphocytes Absolute Auto 0.98 K/mm3 (0.9-3.2); Lymphocytes Percent Auto 19.1 % (18.3-44.2); Mean Corpuscular HGB Conc 31.4 g/dl (32-36); Mean Corpuscular Hemoglobin 28.9 pg (26-34); Mean Corpuscular Volume 92.1 fl (80-100); Mean Platelet Volume 10.6 fl (7.4-10.4); Monocytes Absolute Auto 1.1 K/mm3 (0.1-0.6); Monocytes Percent Auto 21.4 % (2.6-8.5); Neutrophils Percent Auto 58.1 % (45.5-73.1); Platelet Count Result 165 k/mm3 (150-375); Red Blood Count 4.57 M/mm3 (4.6-6.20); Red Cell Distribution Width 15.9 % (11.5-14.5); White Blood Count 5.1 K/mm3 (4.5-10.0)
[2020-12-11 01:32] LABS: INR 1.5; Prothrombin Time 18.1 Seconds (11.1-14.7)
[2020-12-11 01:33] LABS: Lactic Acid Reflex 1.3 mmol/L (0.7-2.1); Partial Thromboplastin Time 45.1 SECONDS (22.3-36.8)
[2020-12-11] MEDS: SODIUM CHLORIDE 0.9% IV 1,000 ML 999 ML IV CONT ×3 (01:33→05:10)
[2020-12-11 01:34] LABS: Alanine Aminotransferase 17 U/L (4-50); Albumin Level 3.6 g/dL (3.5-5.1); Alkaline Phosphatase 219 U/L (38-126); Anion Gap 8 mmol/L (8-16); Aspartate Amino Transferase 37 U/L (17-59); Bilirubin,Total 1.4 mg/dL (0.2-1.3); Blood Urea Nitrogen 11 mg/dL (9-20); Calcium 8.9 mg/dL (8.4-10.2); Carbon Dioxide 22 mmol/L (22-30); Chloride 107 mmol/L (98-107); Estimated Glomerular Filt Rate > 60; Glucose 95 mg/dL (65-110); Magnesium 1.7 mg/dL (1.6-2.3); Potassium 4.1 mmol/L (3.4-5.0); Sodium 137 mmol/L (137-145)
[2020-12-11 01:43] LABS: Alveolar/Arterial O2 Gradient 36.5 mmHg; Base Excess ABG 0.4 mEq/l (+/-2.0); Fractional Inspired Oxygen 21 %; HCO3 ABG 23.6 mEq/l (22.0-26.0); Methemoglobin ABG 0.3 %THb (0-1.5); Modified Allen's Test Pass; Oxygen Content ABG 18.2 %vol (16.0-22.0); Oxygen Saturation ABG 95.5 % (95.0-100.0); Oxyhemoglobin 92.8 % THb (90.0-100.0); PCO2 ABG 33.9 mmHg (35.0-45.0); PO2 ABG 72.6 mmHg (80.0-100.0); PO2 FiO2 Ratio Arterial Blood 3.46 %; Reduced Hemoglobin 5.9 %THb (0-5.0); Site Drawn RIGHT RADIAL; Total Hemoglobin 13.9 g/dL (12.0-18.0); pH ABG 7.461 (7.350-7.450)
[2020-12-11 04:00] LABS: Add Urine Microscopic? YES; Appearance Urine Clear (Clear); Bacteria Urine Trace /hpf; Bilirubin Urine 1+ (Negative); Blood Urine 2+ (Negative); Color Urine Amber (Yellow); Glucose Urine UA Negative (Negative); Ketones Urine 1+ mg/dL (Negative); Leukocyte Esterase Ur Negative LEU/UL (Negative); Mucus Urine Moderate /lpf; Nitrate Urine Negative (Negative); Protein Urine 1+ mg/dL (Negative); RBC Urine >75 /hpf (0-2); Specific Grav Ur 1.029 (1.001-1.035); Squamous Epithelial Cell Urine Rare /hpf (Few)
--- NOTE | 2020-12-11 07:37 | PC.NURSE ---
Dietary tray ordered for pt at this time, Pt is alert and upright on stretcher, VSS, belongings at bedside. Discussed POC. Pt placed on bed alarm.
--- NOTE | 2020-12-11 07:55 | ECG_ITS ---
Measurements Intervals [place] Rate: 84 P: 39 NV: 156 QRS: -31 QRSD: 89 T: 11 QT: 387 QTc: 460 Interpretive Statements SINUS RHYTHM LEFT AXIS DEVIATION DELAYED PRECORDIAL R/S TRANSITION LOW QRS VOLTAGE IN PRECORDIAL LEADS BORDERLINE T WAVE ABNORMALITY- ANTERIOR LEADS BASELINE ARTIFACT- I, II BORDERLINE ECG Electronically Signed On 12-11-2020 9:03:53 CDT by Winston Leonard D.O.
[2020-12-11 09:42] LABS: Troponin I < 0.012 ng/mL (0.000-0.034)
[2020-12-11 09:55] LABS: NT Pro B Type Natriuretic Pept 463 pg/mL (5-100)
[2020-12-11 10:03] LABS: Erythrocyte Sedimentation Rate 128 mm/hr (0-20)
--- NOTE | 2020-12-11 10:33 | ADMGEN ---
This patient, Shahram Cardozo, was admitted to IMU Room 214-01 on 12/11/20 at 0945. Patient/family oriented to hospital policies and general routines including ID bracelet, bed and alarms, visiting hours, pain management, procedures, bathroom and other care routines, personal items, smoking policy, room service/diet, and visiting hours. Information on how to activate the Rapid Response Team has been discussed. Patient/Family are encouraged to report perceived risks to care and to ask questions if they do not understand what they are told or what they should do.
[2020-12-11 10:58] LABS: CRP 7.1 mg/dL (<1.0); Creatine Kinase 177 U/L (55-170)
[2020-12-11] MEDS: SODIUM CHLORIDE 0.9% IV 1,000 ML 125 ML IV CONT (12:28)
[2020-12-11 12:47] LABS: Troponin I < 0.012 ng/mL (0.000-0.034)
--- NOTE | 2020-12-11 12:47 | PM.IMHP ---
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 In ED, patient was noted to fever of 101.5 and low blood pressures. Chest x-ray reveals concerns for bilateral pneumonia. COVID test has been sent and results are pending. He is also noted to have UA concerning for urine infection, which in the light of current condition will be treated as symptomatic. Patient is confused at baseline and has history of dementia, is not able to provide history. However, on interview, patient reports that he not been feeling well and is unsure why he was brought to the hospital. was attempted to be reached by phone by hospitalist however was unable to be contacted. He denies any nausea, vomiting, chest pain, chills, SOB or any other complains. His only complain is weakness and frequent urination. Chief Complaint: fever, fall Review of Systems Review of Systems: A 10 point review of systems was conducted which was otherwise negative. [facility] Past Medical History Medical History (Updated 12/11/20 @ 13:33 by Mamta Keyes MD) Colon cancer Schizophrenia Family History Family History Mother Diabetes mellitus Family history of malignant neoplasm of breast in first degree relative Father Malignant neoplasm of prostate Social History Social History Smoking packs per day: 3 Smoking cigarettes per day: 60.0 Smoking status: Former smoker Tobacco type: cigarettes Smoking end date: 05/02/86 Alcohol intake: never Substance use: never Gender identity (if verbalized by the patient): Male Spiritual care concerns: No Meds Home Medications and Allergies Home Medications Medication Instructions Recorded Confirmed Type gabapentin 100 mg PO DAILY 08/13/19 12/11/20 History loperamide 2 mg PO Q6H PRN 08/13/19 12/11/20 History polysaccharide iron complex 150 mg PO Q2D 08/13/19 12/11/20 History [Poly-Iron] quetiapine 200 mg PO TID 08/13/19 12/11/20 History Adults Multivitamin 1 tablet PO DAILY 12/11/20 12/11/20 History Milk of Magnesia 30 ml PO HS PRN 12/11/20 12/11/20 History apixaban [Eliquis] 5 mg PO BID 12/11/20 12/11/20 History bisacodyl 10 mg RECTAL DAILY PRN 12/11/20 12/11/20 History divalproex 250 mg PO TID 12/11/20 12/11/20 History ergocalciferol (vitamin D2) 50,000 unit PO Q7D 12/11/20 12/11/20 History [Vitamin D2] lorazepam 1 mg PO BID 12/11/20 12/11/20 History mirtazapine 15 mg PO HS 12/11/20 12/11/20 History ondansetron HCl 8 mg PO Q8H PRN 12/11/20 12/11/20 History sodium phosphates [Fleet Enema] 118 ml RECTAL DAILY PRN 12/11/20 12/11/20 History Allergies Allergy/AdvReac Type Severity Reaction Status Date / Time Penicillins Allergy Intermediate Dyspnea / Verified 12/10/20 23:32 SOB Vital Signs Vital Signs - 24 hr 12/10/20 23:21 12/11/20 01:48 12/11/20 03:08 Temperature 99.1 F Pulse Rate 115 H 100 93 Respiratory Rate 16 27 H 20 Blood Pressure 117/85 105/71 93/76 L Pulse Oximetry 95 99 95 12/11/20 03:47 12/11/20 05:41 12/11/20 07:24 Temperature Pulse Rate 89 82 82 Respiratory Rate 23 H 16 24 H Blood Pressure 91/69 L 100/72 100/74 Pulse Oximetry 99 95 97 12/11/20 08:45 12/11/20 09:08 12/11/20 09:45 Temperature 97.1 F L Pulse Rate 86 84 84 Respiratory Rate 19 16 16 Blood Pressure 95/73 L 108/73 Pulse Oximetry 97 96 100 Exam Const: General: cooperative, alert and awake HENMT: Head: normal to inspection Neck: Neck: normal visual inspection Chest: Chest palpation & inspection: normal inspection of the chest Resp: Effort &
[2020-12-11 14:50] LABS: CRP 7.2 mg/dL (<1.0)
[2020-12-11 14:51] LABS: D Dimer 1.29 ug/mL (<0.48)
[2020-12-11] MEDS: QUEtiapine FUMARATE 100 MG TABLET 200 MG PO (18:03)
[2020-12-11] MEDS: DIVALPROEX SODIUM DR 250 MG TABEC PO (18:04)
[2020-12-11] MEDS: APIXABAN 5 MG TABLET PO (18:04)
[2020-12-11 20:10] LABS: SARS-CoV-2 RNA PCR Negative
[2020-12-11] MEDS: FAMOTIDINE 10 MG TABLET PO (21:04)
[2020-12-11] MEDS: MIRTAZAPINE 15 MG TABLET PO (21:04)
--- NOTE | 2020-12-11 21:59 | ECG_ITS ---
Measurements Intervals [place] Rate: 104 P: 47 IA: 153 QRS: -38 QRSD: 88 T: 40 QT: 324 QTc: 428 Interpretive Statements SINUS TACHYCARDIA LEFT AXIS DEVIATION BASELINE ARTIFACT- II, III, AVF, V2 POOR R WAVE PROGRESSION, ANTERIOR LEADS BORDERLINE ECG Electronically Signed On 12-12-2020 5:53:50 CDT by Winston Leonard D.O.
[2020-12-12] VITALS (11 sets, daily range): BP systolic 103–111; BP diastolic 67–76; PULSE 98–121; RESP 16–188; TEMP 36.7–37.3; O2SAT 93–97
[2020-12-12 05:51] LABS: Hematocrit 38.6 % (42.0-52.0); Hemoglobin 12.5 g/dL (14.0-18.0); Mean Corpuscular HGB Conc 32.4 g/dl (32-36); Mean Corpuscular Hemoglobin 29.4 pg (26-34); Mean Corpuscular Volume 90.8 fl (80-100); Platelet Count Result 159 k/mm3 (150-375); Red Blood Count 4.25 M/mm3 (4.6-6.20); Red Cell Distribution Width 15.6 % (11.5-14.5); White Blood Count 5.7 K/mm3 (4.5-10.0)
[2020-12-12 06:03] LABS: Lactic Acid Reflex 1.4 mmol/L (0.7-2.1)
[2020-12-12 06:08] LABS: Alanine Aminotransferase 17 U/L (4-50); Alkaline Phosphatase 194 U/L (38-126); Anion Gap 8 mmol/L (8-16); Aspartate Amino Transferase 39 U/L (17-59); Bilirubin,Total 1.4 mg/dL (0.2-1.3); Blood Urea Nitrogen 8 mg/dL (9-20); CRP 8.5 mg/dL (<1.0); Calcium 8.3 mg/dL (8.4-10.2); Carbon Dioxide 21 mmol/L (22-30); Chloride 105 mmol/L (98-107); Creatine Kinase 175 U/L (55-170); Estimated CRCL calculation 71 ml/min; Estimated Glomerular Filt Rate > 60; Glucose 95 mg/dL (65-110); Lactate Dehydrogenase 591 U/L (313-618); Sodium 134 mmol/L (137-145)
[2020-12-12 07:04] LABS: Band Neutrophils Percent 7 % (0-6); Hypochromasia 1+ (NORMAL); Lymphocytes Absolute Manual 0.85 K/mm3 (1.1-4.5); Monocytes Absolute Manual 0.74 K/mm3 (0.1-0.90); Monocytes Percent Manual 13 % (3-9); Neutrophils Percent Manual 65 % (46-73); Platelet Estimate Adequate (Adequate); Total Cells Counted 100
--- NOTE | 2020-12-12 07:17 | PC.NURSE ---
patient had projectile coffee ground emesis around 430 this am. patient denied nausea, stomach pain. dr odonnell is aware and ordered a ppi to be given. repeat h&h. bowel movement is medium brown and soft. patient is on eliquis.
[2020-12-12] MEDS: QUEtiapine FUMARATE 100 MG TABLET 200 MG PO ×3 (09:04→17:08)
[2020-12-12] MEDS: DIVALPROEX SODIUM DR 250 MG TABEC PO ×3 (09:04→17:08)
[2020-12-12] MEDS: GABAPENTIN 100 MG CAPSULE PO (09:05)
[2020-12-12] MEDS: ZINC SULFATE 220 MG CAPSULE PO (09:05)
[2020-12-12] MEDS: ASCORBIC ACID 250 MG TABLET PO (09:05)
[2020-12-12] MEDS: APIXABAN 5 MG TABLET PO ×2 (09:06→17:08)
[2020-12-12] MEDS: POLYSACCHARIDE IRON COMPLEX 150 MG CAPSULE PO (09:06)
[2020-12-12] MEDS: FAMOTIDINE 10 MG TABLET PO (09:06)
[2020-12-12] MEDS: PANTOPRAZOLE SODIUM IV 40 MG VIAL IV PUSH (09:07)
[2020-12-12] MEDS: MULTIVITAMINS THERAPEUTIC TAB (*BKC) 1 TABLET PO (09:07)
[2020-12-12] MEDS: SODIUM CHLORIDE 0.9% IV 1,000 ML 125 ML IV CONT (12:54)
--- NOTE | 2020-12-12 14:16 | PM.DS ---
DS: Admitting Diagnosis Admitting Diagnosis Fever, falls DS: Discharge Diagnosis Discharge Diagnosis (1) Fall: Qualifiers: Encounter type: initial encounter Qualified Code(s): W19.XXXA - Unspecified fall, initial encounter Code(s): W19.XXXA - Unspecified fall, initial encounter Status: Acute (2) Hyperbilirubinemia: Code(s): E80.6 - Other disorders of bilirubin metabolism Status: Acute (3) UTI (urinary tract infection): Qualifiers: Urinary tract infection type: urethritis Qualified Code(s): N34.2 - Other urethritis Code(s): N39.0 - Urinary tract infection, site not specified Status: Acute (4) Person under investigation for COVID-19: Code(s): Z20.822 - Contact with and (suspected) exposure to COVID-19 Status: Acute (5) ISABELLE (acute kidney injury): Code(s): N17.9 - Acute kidney failure, unspecified Status: Acute (6) Pneumonia: Qualifiers: Laterality: bilateral Lung location: unspecified part of lung Pneumonia type: due to unspecified organism Qualified Code(s): J18.9 - Pneumonia, unspecified organism Code(s): J18.9 - Pneumonia, unspecified organism Status: Acute (7) Sepsis: Code(s): A41.9 - Sepsis, unspecified organism Status: Acute (8) Schizophrenia: Qualifiers: Schizophrenia type: unspecified Qualified Code(s): F20.9 - Schizophrenia, unspecified Code(s): F20.9 - Schizophrenia, unspecified Status: Acute (9) Colon cancer: Qualifiers: Colon location: unspecified part of colon Qualified Code(s): C18.9 - Malignant neoplasm of colon, unspecified Code(s): C18.9 - Malignant neoplasm of colon, unspecified Status: Acute DS: Summary Hospital Course Reason for hospitalization: fever, falls, sepsis, pneumonia Hospital Course: 70-year-old male with past medical history significant for schizophrenia, type 2 diabetes mellitus, stage IV colon cancer with liver Mets (follows up with Oncology, 10/31/2020, on Regorafenib), history PE and prior history of COVID pneumonia (08/2019), who is a resident of long term, presented with fever and falls. In ED, patient was noted to fever of 101.5 and low blood pressures. Chest x-ray reveals concerns for bilateral pneumonia. COVID test was sent which resulted negative. He he also received his 1st dose of Pfizer vaccine on 12/09. He is also noted to have UA concerning for urine infection, which in the light of current condition is being treated as symptomatic. He has noted today to improve. He is on room air. His lab work is concerning for 7% bands. However he has continued to receive IV antibiotics which were converted to p.o. Levaquin 500 daily (given his kidney condition). Patient will be discharged back to assisted today on p.o. Levaquin and dexamethasone 6 mg daily for 10 days. Status at Discharge Functional status at discharge: uses cane/walker Time Spent with Patient Time attestation: Total time spent providing and/or coordinating discharge services: Time spent: Greater than 30 minutes Exam Narrative: GENERAL: Awake, alert, conversant HEAD: Normocephalic, atraumatic. EYES: PERRLA and EOMI. ENT: Nares clear, no rhinorrhea or epistaxis. Mucous membranes moist. NECK: Supple. CHEST: No respiratory distress, breathing even and non labored HEART: Regular rate, sinus rhythm ABDOMEN:Non distended, non tender EXTREMITIES: Normal range of motion. No edema. SKIN: Warm, dry, no rash. NEURO:No focal deficits. Alert and oriented x3 DS: Data Data Completed and Pending Labs on day of discharge: Labs from last 24 hours 12/12/20 12/12/20 12/12/20 05:05 05:05 05:05 WBC RBC Hgb Hct MCV MCH MCHC RDW Plt Count MPV Immature Gran % (Auto) Neut % (Auto) Lymph % (Auto) [place] % (Auto) Eos % (Auto) Baso % (Auto) Lymph # (Auto) [place] # (Auto) Eos # (Auto) Ba
== END 2020-12-12 17:45 ==
LOC: ANHED 12-11 08:03 → ANHIMU 12-12 14:12
PROVIDERS: Admitting Provider Internal Medicine; Emergency Provider General Practice; PCP Family Medicine; Visit Provider Internal Medicine
DX: E80.6 Other disorders of bilirubin metabolism (principal); N39.0 Urinary tract infection, site not specified; J18.9 Pneumonia, unspecified organism; A41.9 Sepsis, unspecified organism; E87.3 Alkalosis; R09.02 Hypoxemia; N17.9 Acute kidney failure, unspecified; E86.0 Dehydration; Z20.822 Contact with and (suspected) exposure to COVID-19; C18.9 Malignant neoplasm of colon, unspecified; C78.7 Secondary malignant neoplasm of liver and intrahepatic bile duct; F20.9 Schizophrenia, unspecified; F03.90 Unspecified dementia, unspecified severity, without behavioral disturbance, psychotic disturbance, mood disturbance, and anxiety; E11.9 Type 2 diabetes mellitus without complications; W19.XXXA Unspecified fall, initial encounter; Z79.01 Long term (current) use of anticoagulants; Z87.891 Personal history of nicotine dependence
CPT/HCPCS: 36415; 36600; 51701; 70450; 71045; 72125; 80053; 81001; 82375; 82550; 82728; 82805; 83050; 83605; 83615; 83735; 83880; 84145; 84484; 85025; 85380; 85610; 85652; 85730; 86140; 87040; 87086; 93005; 96361; 96365; 96366; 96367; 96375; 99285; A9270; C9113; C9803; G0378; J0131; J1956; J7030; U0003; U0005

== ENCOUNTER 2020-12-28 17:56 | Observation (INO) | payer MEDICARE, MEDICAID, SELFPAY ==
[2020-12-28] VITALS (43 sets, daily range): BP systolic 81–114; BP diastolic 56–87; PULSE 96–116; RESP 17–34; TEMP 37.3; O2SAT 91–100
--- NOTE | ~2020-12-28 | XR_ITS ---
XR pelvis 1-2V DATE: 12/28/2020 19:32 INDICATION: Fall. Pelvic pain. TECHNIQUE: AP pelvis COMPARISON: None FINDINGS: No pelvic fracture or bone destruction is detected. The pubic symphysis and sacroiliac join ts are intact. No fracture or dislocation is evident at either hip. As a follow-up of fecal material in the rectosigmoid area. IMPRESSION: No pelvic fracture is detected Reviewed, dictated and finalized at location A.
--- NOTE | ~2020-12-28 | XR_ITS ---
XR chest 1V DATE: 12/28/2020 19:34 INDICATION: Fall. History of pulmonary embolus. Pneumonia. Former smoker. TECHNIQUE: AP chest COMPARISON: 12/11/2020 portable AP chest FINDINGS: Relatively stable patchy bilateral pulmonary infiltrates since 12/11/2020 suggesting bilater al multifocal pneumonia. Prominent elevation right diaphragm. Heart size appears normal. No pleural effusion or pneumothorax. IMPRESSION: Relatively stable patchy bilateral pulmonary infiltrates since 12/11/2020 Reviewed, dictated and finalized at location A.
--- NOTE | ~2020-12-28 | US_ITS ---
EXAMINATION: US renal BI EXAM DATE: 12/29/2020 09:38 INDICATION: Hematuria. TECHNIQUE: Multiple grayscale and Doppler images of the kidneys were obtained (by a technologist who performed the scan) and subsequently reviewed. There is no prior study for comparison. FINDINGS: Right kidney: There is normal contour and echogenicity. It measures 10.8 x 5.3 x 6.0 centimeters. T here are no focal renal lesions identified. There is no hydronephrosis. Left kidney: There is normal contour and echogenicity. It measures 9.9 x 4.4 x 6.0 centimeters. The re are no focal renal lesions identified. There is no hydronephrosis. Bladder unremarkable. IMPRESSION: 1. Sonographically unremarkable kidneys. Reviewed, dictated and finalized at location B.
--- NOTE | ~2020-12-28 | XR_ITS ---
EXAMINATION: XR abdomen/kub 1V DATE: 12/29/2020 16:28 INDICATION: Abdominal distention. TECHNIQUE: A supine view of the abdomen on 2 radiographs was obtained. COMPARISON: CT abdomen and pelvis 08/13/2019 FINDINGS: There are no dilated loops of bowel. There is a small volume of stool in the distal colon. IMPRESSION: 1. Nonobstructive bowel gas pattern. Reviewed, dictated and finalized at location A.
--- NOTE | ~2020-12-28 | XR_ITS ---
XR shoulder LT min 2V DATE: 12/28/2020 19:32 INDICATION: Fall today. Left shoulder injury, pain TECHNIQUE: 5 views COMPARISON: None FINDINGS: No fracture or dislocation of the left shoulder. No periosteal reaction or bone destruction . Mild osteoarthritis of the left glenohumeral joint. There is moderate osteopenia. IMPRESSION: Osteopenia Mild osteoarthritis at the left glenohumeral joint No fracture or dislocation Reviewed, dictated and finalized at location A.
--- NOTE | ~2020-12-28 | US_ITS ---
EXAMINATION: US abdomen limited EXAM DATE: 12/29/2020 09:41 INDICATION: Elevated liver enzyme TECHNIQUE: Multiple grayscale and Doppler images of the abdomen right upper quadrant were obtained (estee y a technologist who performed the scan) and subsequently reviewed. There is no prior study for sofía mayes. FINDINGS: The pancreatic head and body are normal in appearance. The pancreatic tail is not visualized. The l iver has normal echogenicity and contour. There are no focal liver lesions identified. There is no evidence of intrahepatic biliary duct dilation. Portal venous flow was seen in the hepatopedal, nor mal direction and has normal Doppler waveform. No right-sided hydronephrosis. Common bile duct measures 3 mm, which is normal. Gallbladder is not definitively identified. IMPRESSION: 1. Limited exam, gallbladder not identified. 2. Unremarkable liver, no biliary dilation. Reviewed, dictated and finalized at location B.
--- NOTE | ~2020-12-28 | CT_ITS ---
EXAMINATION: CT brain wo con DATE: 12/28/2020 19:08 INDICATION: Patient fall. Confusion. Patient on anticoagulant therapy. TECHNIQUE: Computed tomography (CT) of the head was performed without intravenous contrast. The mA wa s adjusted according to patient size. Iterative reconstruction technique was employed. Exam dose: 60 5.33 mGy-cm total exam DLP. COMPARISON: 12/11/2020 CT brain FINDINGS: No intracranial mass lesion or hemorrhage or cerebrovascular accident is evident. No midlin e shift or mass effect effect. Bilateral carotid siphon internal carotid artery calcifications. There is nonspecific diminished atte nuation of the cerebral white matter, likely due to chronic small vessel ischemic changes. There is moderate cerebral volume loss. No fracture or bone destruction of the cranial vault. Included paranasal sinuses and mastoid air cell s are well-developed and aerated. Right frontoethmoid area osteoma. IMPRESSION: No acute intracranial finding or significant change since 12/11/2020 Reviewed, dictated and finalized at Location A. Reviewed, dictated and finalized at location A.
--- NOTE | ~2020-12-28 | CT_ITS ---
EXAMINATION: CT cervical spine wo con DATE: 12/28/2020 19:08 INDICATION: Patient fall. Patient on anticoagulant therapy. TECHNIQUE: Computed tomography (CT) of the cervical spine was performed without intravenous contrast. Automated exposure control and iterative reconstruction technique were employed. Exam dose: 376.83 mGy-cm total exam DLP. COMPARISON: None FINDINGS: There is mild reversal of cervical curvature which may be due to positioning or muscle spas m. C1 and C2 are normally aligned and the odontoid process is intact. No fracture or dislocation, locked facet or prevertebral soft tissue swelling. There is prominent degenerative disc disease and uncovertebral joint spurring at C3-4 through C7-T1. Emphysematous changes and scarring in the apices. IMPRESSION: Reversal of cervical curvature which may be due to muscle spasm Cervical spondylosis; no fracture or dislocation Reviewed, dictated and finalized at Location A. Reviewed, dictated and finalized at location A.
--- NOTE | 2020-12-28 18:59 | PC.NURSE ---
Pt off floor to CT scan
--- NOTE | 2020-12-28 19:08 | ECG_ITS ---
Measurements Intervals [place] Rate: 108 P: 12 OR: 132 QRS: -37 QRSD: 86 T: 4 QT: 322 QTc: 432 Interpretive Statements SINUS TACHYCARDIA LEFT AXIS DEVIATION VOLTAGE CRITERIA FOR LVH BORDERLINE T WAVE ABNORMALITY- ANT/INF LEADS ABNORMAL ECG Electronically Signed On 12-28-2020 20:03:21 CDT by Winston Leonard D.O.
[2020-12-28 19:44] LABS: Basophils Percent Auto 0.3 % (0.2-1.2); Eosinophils Absolute Auto 0.1 K/mm3 (0-0.3); Eosinophils Percent Auto 0.9 % (0-4.4); Hematocrit 41.4 % (42.0-52.0); Hemoglobin 13.3 g/dL (14.0-18.0); Immature Granulocyte Absolute 0.03 K/mm3 (0.00-0.031); Immature Granulocyte Percent A 0.4 % (0-0.5); Lymphocytes Absolute Auto 1.51 K/mm3 (0.9-3.2); Lymphocytes Percent Auto 20.2 % (18.3-44.2); Mean Corpuscular HGB Conc 32.1 g/dl (32-36); Mean Corpuscular Hemoglobin 31.2 pg (26-34); Mean Corpuscular Volume 97.2 fl (80-100); Mean Platelet Volume 11.2 fl (7.4-10.4); Monocytes Absolute Auto 1.4 K/mm3 (0.1-0.6); Monocytes Percent Auto 18.1 % (2.6-8.5); Neutrophils Absolute Auto 4.5 K/mm3 (1.3-6.7); Neutrophils Percent Auto 60.1 % (45.5-73.1); Platelet Count Result 176 k/mm3 (150-375); Red Blood Count 4.26 M/mm3 (4.6-6.20); White Blood Count 7.5 K/mm3 (4.5-10.0)
[2020-12-28 19:54] LABS: Alanine Aminotransferase 33 U/L (4-50); Albumin Level 3.3 g/dL (3.5-5.1); Alkaline Phosphatase 259 U/L (38-126); Anion Gap 5 mmol/L (8-16); Aspartate Amino Transferase 46 U/L (17-59); Bilirubin,Total 1.5 mg/dL (0.2-1.3); Blood Urea Nitrogen 14 mg/dL (9-20); Calcium 8.6 mg/dL (8.4-10.2); Carbon Dioxide 24 mmol/L (22-30); Chloride 104 mmol/L (98-107); Estimated CRCL calculation 59 ml/min; Estimated Glomerular Filt Rate > 60; Glucose 108 mg/dL (65-110); Sodium 133 mmol/L (137-145)
[2020-12-28 19:55] LABS: INR 1.2
[2020-12-28 19:56] LABS: Partial Thromboplastin Time 44.6 SECONDS (22.3-36.8)
--- NOTE | 2020-12-28 20:10 | ED.GENADULT ---
HPI - General Adult General Chief complaint: Fall Stated complaint: fall Time Seen by Provider: 12/28/20 19:04 Source: RN notes reviewed History of Present Illness HPI narrative: [facility]. Per [facility] patient is had frequent falls this week. Patient fell in bed today and initially complained of pain to his head and shoulder but currently is laying in bed with no complaints at this time. Patient denies any chest pain shortness of breath abdominal pain nausea or vomiting patient states she is trying get up out of bed when he fell Related Data Home Medications Medication Instructions Recorded Confirmed gabapentin 100 mg PO DAILY 08/13/19 12/11/20 polysaccharide iron complex 150 mg PO Q2D 08/13/19 12/11/20 [Poly-Iron] quetiapine 200 mg PO TID 08/13/19 12/11/20 Adults Multivitamin 1 tablet PO DAILY 12/11/20 12/11/20 Eliquis 5 mg PO BID 12/11/20 12/11/20 Fleet Enema 118 ml RECTAL DAILY PRN 12/11/20 12/11/20 Milk of Magnesia 30 ml PO HS PRN 12/11/20 12/11/20 bisacodyl 10 mg RECTAL DAILY PRN 12/11/20 12/11/20 divalproex 250 mg PO TID 12/11/20 12/11/20 ergocalciferol (vitamin D2) 50,000 unit PO Q7D 12/11/20 12/11/20 lorazepam 1 mg PO BID 12/11/20 12/11/20 mirtazapine 15 mg PO HS 12/11/20 12/11/20 ondansetron HCl 8 mg PO Q8H PRN 12/11/20 12/11/20 Allergies Allergy/AdvReac Type Severity Reaction Status Date / Time Penicillins Allergy Intermediate Dyspnea / Verified 12/28/20 18:16 SOB Review of Systems Review of Systems: Gen.: Denies fevers or chills Eyes: Denies eye pain or visual change ENT: Denies congestion Respiratory: Denies shortness of breath or cough CV: Denies chest pain GI: Denies abdominal pain nausea, emesis or diarrhea Musculoskeletal: See HPI Neuro: Denies headache or loss of consciousness Skin: Denies rash Except as documented, all other systems reviewed and negative [facility] Past Medical History Medical History Colon cancer Schizophrenia Family History Family History Mother Diabetes mellitus Family history of malignant neoplasm of breast in first degree relative Father Malignant neoplasm of prostate Social History Social History Smoking packs per day: 3 Smoking cigarettes per day: 60.0 Smoking status: Former smoker Tobacco type: cigarettes Smoking end date: 05/02/86 Alcohol intake: never Substance use: never Gender identity (if verbalized by the patient): Male Spiritual care concerns: No Exam Narrative: APPEARANCE: No acute distress, nontoxic, resting in bed EYES: PERRL HEENT: Normocephalic, atraumatic, oral mucosa dry no facial tenderness Neck: Supple no midline tenderness palpation RESPIRATORY: No respiratory distress Clear to auscultation bilaterally with no rhonchi wheezing or rales. CARDIOVASCULAR: Regular rate and rhythm without murmurs rubs or gallops. ABDOMINAL: Soft, nontender, nondistended, no rebound or guarding MUSCULOSKELETAl: Moves all extremities. No clubbing, cyanosis or edema. NEURO: Awake and alert x 2 Following commands, speech normal, no focal deficits SKIN:: Warm, dry. No rashes lesions or abrasions PSYCHIATRIC: Normal affect/mood, Course Course Emergency Course: Reviewed old records. The patient was admitted to the hospital for UTI and pneumonia back on 12/11/2020 patient's with chest x-ray today shows bilateral infiltrates unchanged from 12/11/2020 patient at this time has no fever he has no white count no shift doubt pneumonia at this time Patient given fluids in the ED continues to have orthostatic hypotension feel this is likely cause of the patient's falls will admit at this time Discussed with patient and family results of workup and diagnosis. Discussed need for admission. Patient and family understand and agree to current chinyere
[2020-12-28] MEDS: SODIUM CHLORIDE 0.9% IV 1,000 ML 999 ML IV CONT ×2 (20:30→22:27)
[2020-12-28 20:55] LABS: Add Urine Microscopic? YES; Appearance Urine Clear (Clear); Bacteria Urine Trace /hpf; Bilirubin Urine Negative (Negative); Blood Urine 2+ (Negative); Color Urine Amber (Yellow); Glucose Urine UA Negative (Negative); Ketones Urine Negative (Negative); Leukocyte Esterase Ur Negative LEU/UL (Negative); Mucus Urine Rare /lpf; Nitrate Urine Negative (Negative); Protein Urine 1+ mg/dL (Negative); RBC Urine 21-50 /hpf (0-2); Specific Grav Ur 1.025 (1.001-1.035)
--- NOTE | 2020-12-28 21:28 | PC.NURSE ---
Samir, nurse at [facility], called for an update on patient.
[2020-12-28 21:47] LABS: Valproic Acid 14.1 ug/mL (50-120)
--- NOTE | 2020-12-28 21:47 | PC.NURSE ---
Patient refused to stand to up to finish othorstatic blood pressures. Patient stated, I'm too tired
--- NOTE | 2020-12-28 23:17 | PC.NURSE ---
Assumed care of pt at this time, pt is alert and upright on stretcher, fluids infusing. Pt repositioned and given call light. Discussed POC. Pt on tele monitor, VSS.
[2020-12-29] VITALS (15 sets, daily range): BP systolic 96–121; BP diastolic 63–79; PULSE 93–107; RESP 16–20; TEMP 35.8–36.2; O2SAT 94–97; BMI 26.6
--- NOTE | 2020-12-29 01:30 | ADMGEN ---
This patient, Shahram Cardozo, was admitted to Medical Room 340-01. Patient/family oriented to hospital policies and general routines including ID bracelet, bed and alarms, visiting hours, pain management, procedures, bathroom and other care routines, personal items, smoking policy, room service/diet, and visiting hours. Information on how to activate the Rapid Response Team has been discussed. Patient/Family are encouraged to report perceived risks to care and to ask questions if they do not understand what they are told or what they should do.
[2020-12-29] MEDS: SODIUM CHLORIDE 0.9% IV 1,000 ML 100 ML IV CONT ×2 (01:55→12:47)
--- NOTE | 2020-12-29 02:38 | PM.IMHP ---
H&P: HPI History of Present Illness Date/Time: 12/29/20 02:38 Chief Complaint: Recurrent fall Narrative: Patient is a [facility] resident who presents to the emergency department due to recurrent falls. This has been ongoing for couple of days now. He states he fell on the bed was trying to get up and hit his head. He is a poor historian and most of the history is taken from medical records. He states his missing his meals. Denies any ongoing diarrhea nausea vomiting or abdominal pain. He also denies any fever chills or chest pain shortness of breath or cough. Patient was recently admitted to the hospital for UTI pneumonia back in early November. In the ER his noted to be orthostatic and was given 2 L of fluid. Patient however remained orthostatic and hence plan [place] admission for evaluation and management. The initial blood pressure on arrival was also lowish. Head CT was negative which was done because of the fall and head injury and being on of anticoagulants. Cervical spine CT along with x-ray negative for any bony injuries. Chest x-ray showed relatively stable patchy bilateral pulmonary infiltrates since 12/11/2020. Review of Systems Review of Systems: - CONSTITUTIONAL: Denies weight loss, fever and chills. - HEENT: Denies changes in vision and hearing - RESPIRATORY: Denies SOB and cough. - CV: Denies palpitations and CP. - GI: Denies abdominal pain, nausea, vomiting and diarrhea. - : Denies dysuria and urinary frequency. - MSK: Denies myalgia and joint pain. - SKIN: Denies rash and pruritus. - NEUROLOGICAL: Denies headache and syncope. Recurrent fall denies any loss of consciousness - PSYCHIATRIC: Denies recent changes in mood. Denies anxiety and depression. All systems reviewed & are unremarkable except as noted in HPI and below Constitutional: Constitutional: Reports fatigue and Reports weakness Neurologic: Reports weakness Endocrine: Endocrine: Reports fatigue PMFSH Past Medical History Medical History Colon cancer Schizophrenia Family History Family History Mother Diabetes mellitus Family history of malignant neoplasm of breast in first degree relative Father Malignant neoplasm of prostate Social History Social History Smoking packs per day: 3 Smoking cigarettes per day: 60.0 Smoking status: Former smoker Alcohol intake: never Substance use: never Gender identity (if verbalized by the patient): Male Spiritual care concerns: No Meds Home Medications and Allergies Home Medications Medication Instructions Recorded Confirmed Type gabapentin 100 mg PO DAILY 08/13/19 12/29/20 History quetiapine 200 mg PO TID 08/13/19 12/29/20 History Adults Multivitamin 1 tablet PO DAILY 12/11/20 12/29/20 History Eliquis 5 mg PO BID 12/11/20 12/29/20 History Fleet Enema 118 ml RECTAL DAILY PRN 12/11/20 12/29/20 History Milk of Magnesia 30 ml PO HS PRN 12/11/20 12/29/20 History bisacodyl 10 mg RECTAL DAILY PRN 12/11/20 12/29/20 History divalproex 250 mg PO TID 12/11/20 12/29/20 History ergocalciferol (vitamin D2) 50,000 unit PO Q7D 12/11/20 12/29/20 History lorazepam 1 mg PO BID 12/11/20 12/29/20 History mirtazapine 15 mg PO HS 12/11/20 12/29/20 History ondansetron HCl 8 mg PO Q8H PRN 12/11/20 12/29/20 History famotidine [Heartburn Relief 10 mg PO Q12HR 30 Days #60 tablet 12/12/20 12/29/20 Rx (famotidine)] zinc sulfate 220 mg PO QAM 30 Days #132 cap 12/12/20 12/29/20 Rx Ferrex 150 1 cap PO USEASDIRECTD 12/29/20 12/29/20 History acetaminophen 650 mg PO Q4-5H PRN 12/29/20 12/29/20 History loperamide 2 mg PO QID PRN 12/29/20 12/29/20 History regorafenib [Stivarga] 40 mg PO TID 12/29/20 12/29/20 History Allergies Allergy/AdvReac Type Severity Reaction Status Date / Time Penicillins Allergy Intermediate Dyspnea / Ve
[2020-12-29 09:26] LABS: Ammonia < 9 umol/L (9-30)
[2020-12-29] MEDS: GABAPENTIN 100 MG CAPSULE PO (09:53)
[2020-12-29] MEDS: MULTIVITAMINS THERAPEUTIC TAB (*BKC) 1 TABLET PO (09:53)
[2020-12-29] MEDS: FAMOTIDINE 10 MG TABLET PO ×2 (09:54→20:09)
[2020-12-29] MEDS: ZINC SULFATE 220 MG CAPSULE PO (09:54)
[2020-12-29] MEDS: APIXABAN 5 MG TABLET PO ×2 (09:54→20:11)
[2020-12-29] MEDS: QUEtiapine FUMARATE 100 MG TABLET 200 MG PO ×3 (09:54→16:57)
[2020-12-29] MEDS: DIVALPROEX SODIUM DR 250 MG TABEC PO ×4 (09:54→20:09)
[2020-12-29] MEDS: LORazepam (*CRX) 1 MG TABLET PO ×2 (09:59→16:56)
--- NOTE | 2020-12-29 13:20 | PM.IMPN ---
Progress Note: A&P Assessment and Plan (1) Orthostatic hypotension: Code(s): I95.1 - Orthostatic hypotension Status: Acute Assessment and Plan: Orthostatic hypotension looks dry likely poor p.o. intake. Will give IV resuscitation continue to monitor orthostatics. Strict intake and output measuring Recently treated with Decadron for 10 days since discharge suspicious for adrenal insufficiency will check cortisol level. Will also check thyroid function. TSH was 4.6, cortisols pending No signs of infection currently. Chest x-ray with stable patchy infiltrates but not unchanged from a chest x-ray earlier in the month. WBC count is within normal limit. No fevers A with microscopic hematuria with no signs of infection. Follow urine culture (2) Falls frequently: Code(s): R29.6 - Repeated falls Status: Acute Assessment and Plan: # Recurrent falls likely due to orthostasis from poor oral intake, dehydration KUB to rule out obstruction or constipation, showed only a small amount of stool, patient started on daily senna His vital signs improved with rehydration and respond readily Patient will need assistance with getting enough oral hydration and with meals At discharge may order daily orthostatic vital signs every other day for the 1st 2 weeks. Continue with aggressive physical therapy and occupational therapy Keep him on fall precautions near the nurse's station Make sure he is getting up to the chair for meals 3 times a day and participating in therapy daily (3) Contusion of head: Code(s): S00.93XA - Contusion of unspecified part of head, initial encounter Status: Acute Assessment and Plan: History of schizophrenia and Dementia, Type 2 diabetes mellitus, Stage IV colon cancer with liver Mets follows up with Oncology on Rigorafenib, History of PE and prior history of COVID pneumonia Head CT clear Ordered neurological assessments Q shift PT and OT evaluations (4) Hyperbilirubinemia: Code(s): E80.6 - Other disorders of bilirubin metabolism Status: Acute Assessment and Plan: Elevated liver enzymes particularly ALP will check liver ultrasound. ammonia level norrmal, valproate level low to normal Liver function tests were normal (5) Schizophrenia: Qualifiers: Schizophrenia type: unspecified Qualified Code(s): F20.9 - Schizophrenia, unspecified Code(s): F20.9 - Schizophrenia, unspecified Status: Acute Assessment and Plan: valproate level low to normal - maybe he is not getting enough? and falls? (6) Colon cancer: Qualifiers: Colon location: unspecified part of colon Qualified Code(s): C18.9 - Malignant neoplasm of colon, unspecified Code(s): C18.9 - Malignant neoplasm of colon, unspecified Status: Acute Assessment and Plan: KUB is without concern and has a small amount of stool Follow labs that are without concern (7) Hematuria: Code(s): R31.9 - Hematuria, unspecified Status: Acute Assessment and Plan: MICROSCOPIC HEMATURIA WILL CHECK ULTRASOUND KIDNEY AND BLADDER Patient does take Eliquis twice a day and he has had a recent fall -that is likely contributing to his hematuria with 2+ blood and 21-50 rbc's Bladder and abdominal scan ultrasounds are clear Additional Plan # DVT prophylaxis on Eliquis # do not resuscitate status Subjective Date/time seen: 12/29/20 13:20 According to staff, he ate breakfast independently and ate more of his meal. Shahram was not very talkative when I went to see him mid morning. At this time, he was napping. He did wake up and acknowledge me, but stated that he wasn't hungry. He denies any abdominal pain or discomfort, denied difficulty breathing or chest pain. Ammonia level normal and valproic acid level low (not toxic) - so not cause for falls or any lethargy. The patient takes divalproex t.i.d., checked his valproate level found to
[2020-12-29 18:19] LABS: Hematocrit 33.1 % (42.0-52.0); Hemoglobin 10.3 g/dL (14.0-18.0); Mean Corpuscular HGB Conc 31.1 g/dl (32-36); Mean Corpuscular Hemoglobin 30.7 pg (26-34); Mean Corpuscular Volume 98.8 fl (80-100); Mean Platelet Volume 11.8 fl (7.4-10.4); Platelet Count Result 167 k/mm3 (150-375); Red Blood Count 3.35 M/mm3 (4.6-6.20); Red Cell Distribution Width 17.8 % (11.5-14.5); White Blood Count 6.7 K/mm3 (4.5-10.0)
[2020-12-29 18:29] LABS: Anion Gap 2 mmol/L (8-16); Blood Urea Nitrogen 10 mg/dL (9-20); Calcium 7.5 mg/dL (8.4-10.2); Carbon Dioxide 24 mmol/L (22-30); Chloride 107 mmol/L (98-107); Estimated CRCL calculation 87 ml/min; Estimated Glomerular Filt Rate > 60; Glucose 86 mg/dL (65-110); Sodium 133 mmol/L (137-145)
[2020-12-29] MEDS: MIRTAZAPINE 15 MG TABLET PO (20:11)
[2020-12-29] MEDS: SENNA/DOCUSATE SODIUM TABLET 1 TAB PO (20:12)
[2020-12-29 21:56] LABS: Free T4 Free Thyroxine Reflex 1.44 ng/dL (0.78-2.19)
[2020-12-29 22:51] LABS: Total Triiodothyronine (T3) 0.94 NG/ML (0.97-1.69)
[2020-12-30] VITALS (12 sets, daily range): BP systolic 91–154; BP diastolic 65–121; PULSE 92–122; RESP 16–18; TEMP 36.1–37.5; O2SAT 96–98
[2020-12-30 06:31] LABS: Basophils Percent Auto 0.3 % (0.2-1.2); Eosinophils Absolute Auto 0.1 K/mm3 (0-0.3); Eosinophils Percent Auto 1.4 % (0-4.4); Hematocrit 30.3 % (42.0-52.0); Hemoglobin 9.3 g/dL (14.0-18.0); Immature Granulocyte Absolute 0.03 K/mm3 (0.00-0.031); Immature Granulocyte Percent A 0.4 % (0-0.5); Lymphocytes Absolute Auto 1.41 K/mm3 (0.9-3.2); Lymphocytes Percent Auto 19.6 % (18.3-44.2); Mean Corpuscular HGB Conc 30.7 g/dl (32-36); Mean Corpuscular Hemoglobin 30.7 pg (26-34); Mean Platelet Volume 11.1 fl (7.4-10.4); Monocytes Absolute Auto 1.5 K/mm3 (0.1-0.6); Monocytes Percent Auto 20.4 % (2.6-8.5); Neutrophils Absolute Auto 4.2 K/mm3 (1.3-6.7); Neutrophils Percent Auto 57.9 % (45.5-73.1); Platelet Count Result 194 k/mm3 (150-375); Red Blood Count 3.03 M/mm3 (4.6-6.20); Red Cell Distribution Width 17.9 % (11.5-14.5); White Blood Count 7.2 K/mm3 (4.5-10.0)
[2020-12-30 06:45] LABS: Alanine Aminotransferase 28 U/L (4-50); Albumin Level 2.8 g/dL (3.5-5.1); Alkaline Phosphatase 253 U/L (38-126); Anion Gap 6 mmol/L (8-16); Aspartate Amino Transferase 45 U/L (17-59); Bilirubin,Total 1.3 mg/dL (0.2-1.3); Blood Urea Nitrogen 8 mg/dL (9-20); Calcium 7.8 mg/dL (8.4-10.2); Carbon Dioxide 20 mmol/L (22-30); Chloride 104 mmol/L (98-107); Estimated CRCL calculation 87 ml/min; Estimated Glomerular Filt Rate > 60; Glucose 68 mg/dL (65-110); Sodium 130 mmol/L (137-145)
[2020-12-30] MEDS: MULTIVITAMINS THERAPEUTIC TAB (*BKC) 1 TABLET PO (09:13)
[2020-12-30] MEDS: QUEtiapine FUMARATE 100 MG TABLET 200 MG PO ×3 (09:13→16:57)
[2020-12-30] MEDS: ZINC SULFATE 220 MG CAPSULE PO (09:13)
[2020-12-30] MEDS: POLYSACCHARIDE IRON COMPLEX 150 MG CAPSULE PO (09:13)
[2020-12-30] MEDS: APIXABAN 5 MG TABLET PO ×2 (09:13→21:15)
[2020-12-30] MEDS: GABAPENTIN 100 MG CAPSULE PO (09:13)
[2020-12-30] MEDS: ERGOCALCIFEROL 50,000 UNIT CAPSULE 50000 UNITS PO (09:14)
[2020-12-30] MEDS: LORazepam (*CRX) 1 MG TABLET PO ×2 (09:16→16:59)
[2020-12-30 09:54] LABS: Hematocrit 36.7 % (42.0-52.0); Hemoglobin 11.4 g/dL (14.0-18.0)
[2020-12-30] MEDS: PANTOPRAZOLE 40 MG TABLET PO ×2 (10:00→21:15)
[2020-12-30 10:30] LABS: Iron 28 ug/dL (49-181)
[2020-12-30 10:32] LABS: Lactate Dehydrogenase 723 U/L (313-618)
[2020-12-30 10:39] LABS: Percent Iron Saturation 17 % (20-50)
[2020-12-30 10:40] LABS: Transferrin 115 mg/dL (206-381)
[2020-12-30] MEDS: DIVALPROEX SODIUM DR 250 MG TABEC PO ×2 (11:13→16:57)
[2020-12-30 11:39] LABS: Folic Acid 9.9 ng/mL (2.76->20)
[2020-12-30 15:43] LABS: EDCOVIDSCREEN Negative (Negative)
--- NOTE | 2020-12-30 16:15 | PM.DS ---
DS: Admitting Diagnosis Admitting Diagnosis Fall DS: Discharge Diagnosis Discharge Diagnosis (1) Orthostatic hypotension: Code(s): I95.1 - Orthostatic hypotension Status: Acute Assessment and Plan: The patient is a 70-year-old man with a history of schizophrenia, who presented to the emergency room for recurrent falls. The patient is not very active in mostly sits in his wheelchair at the senior care. For the last few days he has had multiple falls. Patient has not been eating too much. The patient was recently admitted and discharged 12/12/20 for UTI and given antibiotics which he completed in full. [facility] was concerned for further issues and brought him to the hospital for further evaluation. Initial labs showed the patient was hypotensive at 83/59, tachycardic at 115, increased respiratory rate at 31, afebrile and normal oxygen saturation 91% on room air. Initial labs showed normal white blood cell count, normocytic anemia with a hemoglobin of 13, hematocrit 41%, normal neutrophil count, sodium slightly low at 133, creatinine slightly elevated at 1.2, BUN 14, sign elevated total bilirubin at 1.5, alk-phos at 2:59 a.m., TSH normal. Urinalysis with nancy urine 2+ blood, 4+ year old bilirubin, WBCs 7-9. No acute signs of UTI. CT head and cervical spine showed no acute changes from his fall. Pelvic x-ray was negative for fracture. Shoulder x-ray was negative for fracture dislocation. Chest x-ray on arrival showed relatively stable patchy bilateral pulmonary infiltrates since 12/11/2020. He was not having any type of cough her shortness of breath, afebrile and normal oxygen saturations on room air. In the emergency room the patient was found to be orthostatic and was given copious IV fluid hydration. Most likely from not eating and drinking too much last few days. There were no acute findings for infection. He was admitted to the hospital for further blood pressure monitoring and IV hydration. During hospitalization his renal function normalized. The patient was eating and drinking well. Patient orthostatics were stable. Orthostatic hypotension could be due to acute dehydration verses autonomic dysfunction. I did order Derrick hose to be placed on the patient and recommend this to be worn daily to prevent blood pressure fluctuation. Recommend senior care to continue checking his blood pressure. Do not think he needs any midodrine at this time. Recommend physical and occupational therapy upon discharge. Patient had a renal ultrasound which showed unremarkable kidneys. Patient had abdominal ultrasound due to slight elevation of his total bilirubin and alk-phos levels, which showed gallbladder not identified, unremarkable liver with no biliary dilatation. Abdominal x-ray shows nonobstructive bowel gas pattern. Urine culture was negative for any UTI He also had microscopic hematuria which will need follow-up as an outpatient and primary care provider. Labs this morning showed a drop in his hemoglobin to 9.3. I recheck this lab and it was normal at 11.4. Unsure the reason for the drop most likely lab error. Otherwise the patient's blood pressure has been stable with no acute signs of bleeding. Iron panel shows anemia of chronic disease. The patient did have elevated ferritin and LDH levels along with chest x-ray on arrival showing stable bilateral patchy pulmonary infiltrates. I did do a rapid COVID swab which was negative. He has no signs of having COVID at this time and it appears he had COVID in 2019 Instructed to follow-up primary care provider. Recheck labs in 1 week. Patient understands and agrees the plan all questions answered. I also talked with the patient's and informed her of the findings. She understands and agrees the plan of therapy Patient is on chronic anticoagulation with Eliquis. Concerned with his frequent falls he is at high risk for major bleeding. I recommended following up with primary care
[2020-12-30] MEDS: MIRTAZAPINE 15 MG TABLET PO (21:15)
[2020-12-30] MEDS: SENNA/DOCUSATE SODIUM TABLET 1 TAB PO (21:15)
== END 2020-12-30 22:05 ==
LOC: ANHED 12-29 00:13 → ANH3MED 12-29 01:07
PROVIDERS: Nurse Practitioner; Physician Assistant; Admitting Provider Internal Medicine; Emergency Provider Emergency Medicine; PCP Family Medicine; Visit Provider Internal Medicine
DX: I95.1 Orthostatic hypotension (principal); R29.6 Repeated falls; S00.93XA Contusion of unspecified part of head, initial encounter; C78.7 Secondary malignant neoplasm of liver and intrahepatic bile duct; Z79.01 Long term (current) use of anticoagulants; E80.6 Other disorders of bilirubin metabolism; F20.9 Schizophrenia, unspecified; R31.9 Hematuria, unspecified; E11.9 Type 2 diabetes mellitus without complications; W19.XXXA Unspecified fall, initial encounter; Z20.822 Contact with and (suspected) exposure to COVID-19; Z87.891 Personal history of nicotine dependence; Z86.711 Personal history of pulmonary embolism; Z66 Do not resuscitate; Z85.038 Personal history of other malignant neoplasm of large intestine
CPT/HCPCS: 36415; 51701; 70450; 71045; 72125; 72170; 73030; 74018; 76705; 76775; 80048; 80053; 80164; 81001; 82140; 82533; 82607; 82728; 82746; 83540; 83550; 83615; 84439; 84443; 84466; 84480; 85014; 85018; 85025; 85027; 85610; 85730; 87086; 87426; 93005; 96360; 96361; 97163; 97165; 99285; A9270; C9803; G0378; J7030